=== PATIENT | male | born 1965 | race Caucasian/White ===

== ENCOUNTER 2016-11-15 05:23 | Inpatient (IN) | payer OTHER ==
[~2016-11-15] VITALS: Ht 172.7 cm; Wt 108.5 kg
[2016-11-15] VITALS (9 sets, daily range): BP systolic 97–164; BP diastolic 63–78
[~2016-11-15 05:23] MED LIST: ALLO300T PO; ALPR0.5T PO; AMLO10TA2 PO; ASPI-482 PO; ATOR40TA59 PO; CYCL10TA2 PO; GABA-586 PO; GEMF600T3 PO; HYDR50TA6 PO; INSU100I17 SQ; INSU300I SQ; LIRA0.6P SQ; LOSA100T6 PO; MELA5TAB PO; METF10002 PO; METO100T11 PO; METO100T5 PO; MULT1TAB52 PO; OMEG1CAP28 PO; OXYC-250 PO; PANT40TA5 PO; SENN8.6T6 PO
--- NOTE | 2016-11-15 05:40 | EKG ---
[facility] [address] [place] [address] Test Date: 2016-11-15 Test Time: 05:33:04 Pat Name: DA APONTE Department: Room: 260 1 Gender: M Memory Care Director: TAMMY : 1965 Requested By: ELMO SINGLETON Order Number: [id number] Reading MD: Measurements Intervals [place] Rate: 66 P: -17 HI: 210 QRS: -4 QRSD: 102 T: -3 QT: 390 QTc: 411 Interpretive Statements SINUS RHYTHM LEFTWARD AXIS RVH WITH REPOLARIZATION ABNORMALITY ABNORMAL ECG RI6.01 No previous ECG available for comparison
[2016-11-15] MEDS: MORPHINE SULFATE 2 MG/ML DISP.SYRIN. IV PRN ×3 (05:56→22:20)
[2016-11-15] MEDS ORDERED: ACETAMINOPHEN 325 MG TABLET. PO PRN (06:00)
[2016-11-15] MEDS ORDERED: IV NORMAL SALINE 1000ML BAG 1,000 ML IV SCH (06:00)
[2016-11-15] MEDS ORDERED: ONDANSETRON PF 4 MG/2 ML VIAL. IV PRN (06:00)
[2016-11-15] MEDS: HYDROCODONE/APAP 5/325MG TABLET. PO PRN ×2 (06:26→23:03)
[2016-11-15] MEDS ORDERED: MELA5TAB PO (07:14)
[2016-11-15] MEDS ORDERED: OXYC-250 PO (07:14)
[2016-11-15] MEDS ORDERED: INSU100I13 SQ (07:14)
[2016-11-15] MEDS ORDERED: METF10002 PO (07:14)
[2016-11-15 07:21] LABS: HEMATOCRIT 26.7 % (39.0-53.0); RED CELL DISTRIBUTION WIDTH 13.7 % (11.5-14.5); WHITE BLOOD COUNT 11.7 x10^3/uL (4.0-11.0)
[2016-11-15 07:27] LABS: INR 1.1 (0.8-1.1); PROTHROMBIN TIME PATIENT 13.6 SEC (11.7-14.0)
[2016-11-15 07:31] LABS: CALCIUM 8.3 mg/dL (8.5-10.1); GFR 12.3; MAGNESIUM 2.2 mg/dL (1.8-2.4); POTASSIUM 4.6 mmol/L (3.5-5.1)
--- NOTE | 2016-11-15 08:58 | PDOC2 ---
RITU BARAHONA SENIOR ANALYTICAL CHEMIST 11/15/16 0858: CARDIAC CONSULT DATE OF CONSULT Date of Consult DATE: 11/15/16 TIME: 08:48 REASON FOR CONSULT Reason for Consult: Chest pain REFERRING PHYSICIAN Referring Physician: Ramon SOURCE Source: Chart review, Patient HISTORY OF PRESENT ILLNESS HISTORY OF PRESENT ILLNESS This is a 51 yo male admitted for complains of chest pain. He was initially admitted to [facility] and then transferred to [facility] for further workup. Reports that in the last 2 weeks he has been having right shoulder tightness, sharp pain and also right jaw pain like his teeth was aching. He was then given flexeril. This continued to be intermittent. Last night when he was about to go to bed, he started having mid chest pressure which intensified to 10 then dissipated, lasted about 6 hours finally better after morphine. This was associated with SOA but denies any palpitatins, diaphoresis, nor n/v. His activity tolerance haved been decreased. Denies any peripheral edema but positive for PND and has been noted with apnea accdg to diagnosed with CHARISSA 6 yrs ago but refused to wear any CPAP. His BG has been uncontrolled at home running in the 200s, HTN as well running in the 170s SBP, somewhat noncompliant with his meals for his DM, positive for CKD 4-5 with noted GFR per spouse at 12. He is positive for CAD with PCI/stent on 01/2014. Based on his symptom history, hissymtpom this time is worse that when he had his LHC in 2013. He actually had a normal MPI 1 month prior to his LHC. Denies any falls, injury, PUD, VTE in the past. To add he has been compliant with his medications in which spouse made sure of it. 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) GI: Constipation, GERD Heme/Onc: Anemia NOS Hepatobiliary: No pertinent hx Psych: Anxiety, Panic Musculoskeletal: Osteoarthritis, Other (chronic pain) Rheumatologic: Gout Infectious disease: No pertinent hx ENT: Other (cataract) Renal/: Chronic renal insuff (CKD4-5) Endocrine: Diabetes (2), Hyperparathyroidism (secondary) Dermatology: No pertinent hx PAST SURGICAL HISTORY Past Surgical History: Appendectomy, Cataract Removal, Other (PCI/stent 01/2014 ; vasectomy; mastoidectomy) FAMILY HISTORY Family History: Coronary Artery Disease (father in his 40s and grandfather as well) SOCIAL HISTORY Smoke: No (10 pk yr quit 6 yrs ago) ALCOHOL: occassional Drugs: None Lives: with Family CURRENT MEDICATIONS CURRENT MEDICATIONS Current Medications Medications (Trade) Dose Ordered Sig/Floridalma Route PRN Reason Start Time Stop Time Status Last Admin Dose Admin Morphine Sulfate 2 mg PRN Q2HR PRN IV SEVERE PAIN 11/15/16 05:45 11/15/16 05:56 Acetaminophen/ Hydrocodone Bitart (Lortab 5/325) 1 tab PRN Q6HRS PRN PO MODERATE PAIN 11/15/16 05:45 11/15/16 06:26 ALLERGIES ALLERGIES: Coded Allergies: colchicine (Verified Allergy, Intermediate, 11/15/16) ROS Review of System 14 point ROS evaluated with pertinent positives noted per HPI PHYSICAL EXAM General: Alert, Oriented X3, Cooperative, No acute distress HEENT: Atraumatic, Mucous membr. moist/pink Lungs: Other (faint bibasilar crackles) Heart: Regular rate, Normal S1, Normal S2, Other (S4; MAI 4/6 systolic murmur and 3/6 apical pansystolic murmur. ) Abdomen: Soft, No tenderness, Other (protuberant abdomen) Extremities: No cyanosis, Other (Trace LE edema) Skin: No breakdown, No significant lesion Neuro: Normal speech, Sensation intact Psych/Mental Status: Mental status NL, Mood NL MUSCULOSKELETAL: Osteoarthritic changes both hands VITALS VITALS Vital Signs Date Time Temp Pulse Resp B/P Pulse Ox O2 Delivery O2 Flow Rate FiO2 11/15/16 07:44 98.0 64 16 97/63 92 Nasal Cannula 98.0 11/15/16 07:32 3.0 LABS Lab: Laboratory Tests Test 11/15/16 05:56 11/15/16 07:05 Glucose (Fingerstick) 408mg/dL (70-99) White Blood Count 11.7x10^3/uL (4.0-11.0) Red Blood Count 3.00x10^6/uL (4.30-5.70) Hemoglobin 9.0g/dL (13.0-17.5) Hematocrit 26.7% (39.0-53.0) Mean Corpuscular Volume 89fL (79-100) Mean Corpuscular Hemoglobin 30pg (25-35) Mean Corpuscular Hemoglobin Concent 34g/dL (31-37) Red Cell Distribution Width 13.7% (11.5-14.5) Platelet Count 246x10^3/uL (140-400) Prothrombin Time 13.6SEC (11.7-14.0) Prothromb Time International Ratio 1.1 (0.8-1.1) Sodium Level 136mmol/L (136-145) Potassium Level 4.6mmol/L (3.5-5.1) Chloride Level 99mmol/L (98-107) Carbon Dioxide Level 24mmol/L (21-32) Anion Gap 13 (6-14) Blood Urea Nitrogen 71mg/dL (8-26) Creatinine 5.0mg/dL (0.7-1.3) Estimated GFR (Cockcroft-Gault) 12.3 Glucose Level 379mg/dL (70-99) Calcium Level 8.3mg/dL (8.5-10.1) Magnesium Level 2.2mg/dL (1.8-2.4) Troponin I Quantitative < 0.017ng/mL (0.000-0.055) ASSESSMENT/PLAN ASSESSMENT/PLAN 1. Unstable angina: 2 troponins normal, will trend further. EKG noted with changes to ST on high lateral leads and noncontiguous to leads 2. ECASA. Start on heparin drip. Currently CP free and no SOA. AMARILIS score 5 with pretest probability of 65%. Recommend [facility]. Risks and benefits discussed and agreeable to proceed. Await nephrology eval before proceeding. Cr at 5 with background of CKD4-5. Likely dialysis. TTE today. 01/14/2014 showed an ejection fraction at 60 to 65%, mild diastolic dysfunction, and mild atrial enlargement. His nuclear stress test was done on 01/08/2014 that showed normal perfusion. 2. CAD: 01/2014 it showed EF 60%, left main was normal, left circumflex had 10% minimal disease, LAD had 50% mid segment blockage, RCA had a 70% stenosis that was angioplastied and stented. Last seen by [facility] cardiology on 01/2015 in which plavix was discontinued. Continue with secondary prevention. 3. HTN: low normal currently. Uncontrolled at home noting SBP 170s. Will hold antiHTN for now with low BP. 4. HLP: lipid panel, continue with statin 5. DM2: mostly in the 200s at home. Uncontrolled. Per PCP 6. LLUVIA on CKD4-5: GFR per pt 12s. Nephrology following. 7. Noncompliance with lifestyle modification 8. Hx of CVA in 2003: no residuals. 9. Hx of CHARISSA: continued symptoms. Diagnosed 6 yrs ago but could not tolerate CPAP. 10. Anemia of chronic disease: Hgb 9 11. Obesity Problems: JANUARY RICE MD 11/15/164: CARDIAC CONSULT ALLERGIES ALLERGIES: Coded Allergies: colchicine (Verified Allergy, Intermediate, 11/15/16) ASSESSMENT/PLAN ASSESSMENT/PLAN Patient seen and examined. Agree with above nurse practitioner note. 51-year-old male presenting with unstable angina. Patient also has severe renal sufficiency. After discussion of the risks and benefits of cardiac catheterization the patient ultimately wish to proceed understanding the risks for progression to dialysis. On examination he has a 3 out 6 systolic murmur. Cardiac catheterization performed today revealed stable coronary artery disease. There was difficulty entering the left ventricular cavity with a catheter and due to patient discomfort and hypoxia while on the catheterization table further manipulation was deferred in lieu of by echocardiogram which is suspicious for moderate aortic stenosis. We will consider a transesophageal echocardiography tomorrow based on patient condition. Will follow along closely. Problems: RITU BARAHONA APRN Nov 15, 2016 08:58 JANUARY RICE MD Nov 15, 2016 21:34
[2016-11-15] MEDS ORDERED: ASPIRIN ENTERIC COATED 325 MG TABLET.DR. PO ONE (09:45)
[2016-11-15] MEDS ORDERED: HEPARIN for IV BOLUS 10,000 UNIT/10 ML VIAL. IV PRN (09:45)
[2016-11-15] MEDS ORDERED: HEPARIN 25,000UTS/500ML PREMIX 500 ML IV PRN (09:45)
[2016-11-15] MEDS ORDERED: SULFUR HEXAFLUORIDE MICROSPHR 25 MG VIAL. IVP ONE ×2 (09:57→10:15)
[2016-11-15 10:05] LABS: CHOLESTEROL/HDL RATIO 4.4
[2016-11-15] MEDS ORDERED: DEXTROSE 50% 25 GM / 50ML DISP.SYRIN. IV PRN (10:15)
[2016-11-15] MEDS ORDERED: LIDOCAINE 1% Multi-Dose 20 ML VIAL. ONE (10:27)
[2016-11-15] MEDS ORDERED: HEPARIN for IV BOLUS 10,000 UNIT/10 ML VIAL. ONE (10:27)
[2016-11-15] MEDS ORDERED: VERAPAMIL 5 MG/2 ML VIAL. ONE (10:27)
[2016-11-15] MEDS ORDERED: NITROGLYCERIN 200 MCG/2 ML SYRINGE FOR CATH/VASC LAB. ONE (10:27)
[2016-11-15] MEDS ORDERED: MIDAZOLAM HCL 2 MG/2 ML VIAL. ONE (10:28)
[2016-11-15] MEDS ORDERED: FENTANYL PF 100 MCG/2 ML VIAL. ONE (10:28)
[2016-11-15] MEDS ORDERED: LIDOCAINE 2% 20 ML VIAL. ONE (10:29)
[2016-11-15] MEDS ORDERED: IODIXANOL 320 MG/ML 100 ML VIAL. ONE (10:29)
[2016-11-15] MEDS ORDERED: INSULIN REGULAR 100 UNIT/ML 10ML VIAL. IV ONE (10:30)
--- NOTE | 2016-11-15 10:36 | PDOC1 ---
History and Physical Date of Admission Date of Admission DATE: 11/15/16 TIME: 10:29 Identification/Chief Complaint Chief Complaint chest pain Source Source: Chart review, Patient History of Present Illness History of Present Illness 51 y.o heavy set male who came to [place] last night bec of CP, was all day yesterday, left sided, with SOA, Hx of HTN, uncontrolled (on high sode) , DM 2 on high doses insulin and CKD. PCP Bairon ruano, CReatinien at [place] was 5, trops were elevated hence pt trabsferred for cards and renal consults, Pt ahs been a diabetic and hypertensive for many yrs, usually BP on high side, but BP now actually on low side. On long list of meds, uincluding metformin 500 qD and losartan and HCTZ. Other BP meds are BB and norvasc. Pt did take levemir last night, but BS bow 400s, hgba1c was 7 2 weeks ago per his acct, [facility] has seen, started heparin gtt, planning on cardiac cath today. Renal has seen also planning on CVC dilaysis cath to be placed and plans of initiating HD. at bedside,. 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) GI: Constipation, GERD Heme/Onc: Anemia NOS Hepatobiliary: No pertinent hx Psych: Anxiety, Panic Musculoskeletal: Osteoarthritis, Other (chronic pain) Rheumatologic: Gout Infectious disease: No pertinent hx ENT: Other (cataract) Renal/: Chronic renal insuff (CKD4-5) Endocrine: Diabetes (2), Hyperparathyroidism (secondary) Dermatology: No pertinent hx Past Surgical History Past Surgical History: Appendectomy, Cataract Removal, Other (PCI/stent 01/2014 ; vasectomy; mastoidectomy) Family History Family History: Coronary Artery Disease (father in his 40s and grandfather as well) Social History Smoke: No (10 pk yr quit 6 yrs ago) ALCOHOL: none Drugs: None Current Medications Current Medications Current Medications Morphine Sulfate 2 mg PRN Q2HR PRN IV SEVERE PAIN Last administered on at 05:56; Start 11/15/16 at 05:45 Acetaminophen/ Hydrocodone Bitart (Lortab 5/325) 1 tab PRN Q6HRS PRN PO MODERATE PAIN Last administered on 11/15/16at 06:26; Start 11/15/16 at 05:45 Acetaminophen (Tylenol) 650 mg PRN Q6HRS PRN PO MILD PAIN / TEMP; Start at 06:00 Ondansetron HCl 4 mg 4 mg PRN Q6HRS PRN IV NAUSEA/VOMITING; Start 11/15/16 at 06:00 Sodium Chloride 1,000 ml @ 100 mls/hr Q10H IV Last administered on 11/15/16at 10:11; Start 11/15/16 at 06:00 Heparin Sodium/ Dextrose 500 ml @ 0 mls/hr CONT PRN IV SEE I/O RECORD Last administered on 11/15/16at 10:15; Start 11/15/16 at 09:45 Heparin Sodium (Porcine) 2,850 unit PRN Q6HRS PRN IV FOR UFH LEVEL LESS THAN 0.2; Start 11/15/16 at 09:45 Aspirin (Ecotrin) 325 mg 1X ONCE PO Last administered on 11/15/16at 10:11; Start 11/15/16 at 09:45; Stop 11/15/16 at 09:46; Status DC Aspirin (Ecotrin) 81 mg DAILYWBKFT PO ; Start 11/16/16 at 08:00 Sulfur Hexafluoride Microspheres (Lumason) 25 mg STK-MED ONCE IVP ; Start 11/15 at 09:57; Stop 11/15/16 at 09:58; Status DC Allopurinol (Zyloprim) 150 mg DAILY PO ; Start 11/16/16 at 09:00 Alprazolam (Xanax) 0.5 mg Q8HRS PRN PO ANXIETY / AGITATION; Start 11/15/16 at 10:15 Amlodipine Besylate (Norvasc) 10 mg DAILY PO ; Start 11/16/16 at 09:00; Stop 11/16/16 at 09:00; Status DC Aspirin (Ecotrin) 81 mg DAILYWBKFT PO ; Start 11/16/16 at 08:00; Status UNV Atorvastatin Calcium (Lipitor) 40 mg HS PO ; Start 11/15/16 at 21:00 Cyclobenzaprine HCl (Flexeril) 10 mg DAILY PO ; Start 11/16/16 at 09:00 Gabapentin (Neurontin) 300 mg DAILY PO ; Start 11/16/16 at 09:00 Gemfibrozil (Lopid) 300 mg BID PO ; Start 11/15/16 at 21:00 Insulin Aspart (Novolog) 1 units TIDAC SQ ; Start 11/15/16 at 11:30; Stop at 11:30; Status DC Metoprolol Succinate (Toprol Xl) 100 mg DAILY PO ; Start 11/16/16 at 09:00; Stop 11/16/16 at 09:00; Status DC Oxycodone/ Acetaminophen (Percocet 10/325) 1 tab TID PO ; Start 11/15/16 at 14: 00 Pantoprazole Sodium (Protonix) 40 mg DAILYAC PO ; Start 11/16/16 at 09:00 Sennosides (Senna) 8.6 mg DAILY PRN PO CONSTIPATION; Start 11/15/16 at 10:15 Insulin Detemir (Levemir) 50 units QHS SQ ; Start 11/15/16 at 21:00 Non-Formulary Medication 0.2 mg DAILY SQ ; Start 11/16/16 at 09:00; Status UNV Non-Formulary Medication 5 mg HS PO ; Start 11/15/16 at 21:00; Status UNV Multivitamins/ Calcium (Thera M Plus) 1 tab DAILY PO ; Start 11/16/16 at 09:00 Fish Oil (Fish Oil) 4,000 mg DAILY PO ; Start 11/16/16 at 09:00 Insulin Aspart (Novolog) 0-9 UNITS TIDWMEALS SQ ; Start 11/15/16 at 12:00 Dextrose 12.5 gm PRN Q15MIN PRN IV SEE COMMENTS; Start 11/15/16 at 10:15 Sulfur Hexafluoride Microspheres (Lumason) 25 mg 1X ONCE IVP Last administered on 11/15/16at 10:16; Start 11/15/16 at 10:15; Stop 11/15/16 at 10 :25; Status DC Nitroglycerin 200 mcg 200 mcg STK-MED ONCE .ROUTE ; Start 11/15/16 at 10:27; Stop 11/15/16 at 10:28; Status DC Heparin Sodium/ Sodium Chloride 1,000 ml @ As Directed STK-MED ONCE .ROUTE ; Start 11/15/16 at 10:27; Stop 11/15/16 at 10:28; Status DC Verapamil HCl (Verapamil) 5 mg STK-MED ONCE .ROUTE ; Start 11/15/16 at 10:27; Stop 11/15/16 at 10:28; Status DC Heparin Sodium (Porcine) 10,000 unit STK-MED ONCE .ROUTE ; Start 11/15/16 at 10 :27; Stop 11/15/16 at 10:28; Status DC Active Scripts Active Reported Metformin Hcl 1,000 Mg Tablet 1 Tab PO TID Melatonin 5 Mg Tablet 5 Mg PO HS Percocet 10-325 Mg Tablet (Oxycodone/Acetaminophen) 1 Each Tablet 1 Tab PO TID Lantus Solostar (Insulin Glargine,Hum.rec.anlog) 100 Unit/1 Ml Insuln.pen 50 Unit SQ QHS Xanax (Alprazolam) 0.5 Mg Tablet 0.5 Mg PO Q8HRS PRN Victoza 2-Can (Liraglutide) 0.6 Mg/0.1 Ml Pen.injctr 0.2 Mg SQ DAILY Senna Lax (Sennosides) 8.6 Mg Tablet 8.6 Mg PO DAILY PRN Pantoprazole Sodium 40 Mg Tablet.dr 40 Mg PO DAILY Novolog Flexpen (Insulin Aspart) 100 Unit/1 Ml Insuln.pen 1 Unit SQ TIDAC follow ordered sliding scale Multivitamins (Multivitamin) 1 Each Tablet 1 Each PO DAILY Toprol Xl (Metoprolol Succinate) 100 Mg Tab.er.24h 100 Mg PO DAILY Metoprolol Succinate ( Xl ) (Metoprolol Succinate) 100 Mg Tab.er.24h 100 Mg PO DAILY Losartan Potassium 100 Mg Tablet 100 Mg PO DAILY Hydrochlorothiazide Tablet (Hydrochlorothiazide) 50 Mg Tablet 25 Mg PO DAILY Gemfibrozil 600 Mg Tablet 300 Mg PO BID Gabapentin 300 Mg Capsule 300 Mg PO DAILY Fish Oil 1,200 Mg Softgel ([place]-3 Fatty Acids/Fish Oil) 1 Each Capsule 4 Each PO DAILY Cyclobenzaprine Hcl 10 Mg Tablet 10 Mg PO DAILY Atorvastatin Calcium 40 Mg Tablet 40 Mg PO HS Aspir 81 (Aspirin) 81 Mg Tablet.dr 81 Mg PO DAILY Amlodipine Besylate 10 Mg Tablet 10 Mg PO DAILY Allopurinol 300 Mg Tablet 150 Mg PO DAILY Allergies Allergies: Coded Allergies: colchicine (Verified Allergy, Intermediate, 12/28/16) nitroglycerin (Verified Allergy, Intermediate, 11/15/16) ROS Review of System soa, chest pain, weak Physical Exam General: Alert, Oriented X3, Cooperative, No acute distress HEENT: Atraumatic Lungs: Normal air movement, Other (dec BS) Heart: S1S2, RRR, no thrills Abdomen: Normal bowel sounds, Soft, No tenderness, No hepatosplenomegaly, No masses Male Genitals Exam: normal genitalia, normal prostate Extremities: No clubbing, No cyanosis, No edema, Normal pulses, No tenderness/ swelling Skin: No rashes, No breakdown, No significant lesion Neuro: Normal gait, Normal speech, Strength at 5/5 X4 ext, Normal tone, Sensation intact, Cranial nerves 3-12 NL, Reflexes 2+ Psych/Mental Status: Mental status NL, Mood NL Vitals Vitals Vital Signs Date Time Temp Pulse Resp B/P Pulse Ox O2 Delivery O2 Flow Rate FiO2 11/15/16 07:44 98.0 64 16 97/63 92 Nasal Cannula 98.0 11/15/16 07:32 3.0 Labs Labs Laboratory Tests Test 11/15/16 05:56 11/15/16 07:05 Glucose (Fingerstick) 408mg/dL (70-99) White Blood Count 11.7x10^3/uL (4.0-11.0) Red Blood Count 3.00x10^6/uL (4.30-5.70) Hemoglobin 9.0g/dL (13.0-17.5) Hematocrit 26.7% (39.0-53.0) Mean Corpuscular Volume 89fL (79-100) Mean Corpuscular Hemoglobin 30pg (25-35) Mean Corpuscular Hemoglobin Concent 34g/dL (31-37) Red Cell Distribution Width 13.7% (11.5-14.5) Platelet Count 246x10^3/uL (140-400) Prothrombin Time 13.6SEC (11.7-14.0) Prothromb Time International Ratio 1.1 (0.8-1.1) Sodium Level 136mmol/L (136-145) Potassium Level 4.6mmol/L (3.5-5.1) Chloride Level 99mmol/L (98-107) Carbon Dioxide Level 24mmol/L (21-32) Anion Gap 13 (6-14) Blood Urea Nitrogen 71mg/dL (8-26) Creatinine 5.0mg/dL (0.7-1.3) Estimated GFR (Cockcroft-Gault) 12.3 Glucose Level 379mg/dL (70-99) Calcium Level 8.3mg/dL (8.5-10.1) Magnesium Level 2.2mg/dL (1.8-2.4) Troponin I Quantitative < 0.017ng/mL (0.000-0.055) Triglycerides Level 185mg/dL (0-150) Cholesterol Level 190mg/dL (0-200) LDL Cholesterol, Calculated 110mg/dL (0-100) VLDL Cholesterol, Calculated 37mg/dL (0-40) HDL Cholesterol 43mg/dL (40-60) Cholesterol/HDL Ratio 4.4 Thyroid Stimulating Hormone (TSH) 1.184uIU/mL (0.358-3.74) Laboratory Tests Test 11/15/16 05:56 11/15/16 07:05 Glucose (Fingerstick) 408mg/dL (70-99) White Blood Count 11.7x10^3/uL (4.0-11.0) Red Blood Count 3.00x10^6/uL (4.30-5.70) Hemoglobin 9.0g/dL (13.0-17.5) Hematocrit 26.7% (39.0-53.0) Mean Corpuscular Volume 89fL (79-100) Mean Corpuscular Hemoglobin 30pg (25-35) Mean Corpuscular Hemoglobin Concent 34g/dL (31-37) Red Cell Distribution Width 13.7% (11.5-14.5) Platelet Count 246x10^3/uL (140-400) Prothrombin Time 13.6SEC (11.7-14.0) Prothromb Time International Ratio 1.1 (0.8-1.1) Sodium Level 136mmol/L (136-145) Potassium Level 4.6mmol/L (3.5-5.1) Chloride Level 99mmol/L (98-107) Carbon Dioxide Level 24mmol/L (21-32) Anion Gap 13 (6-14) Blood Urea Nitrogen 71mg/dL (8-26) Creatinine 5.0mg/dL (0.7-1.3) Estimated GFR (Cockcroft-Gault) 12.3 Glucose Level 379mg/dL (70-99) Calcium Level 8.3mg/dL (8.5-10.1) Magnesium Level 2.2mg/dL (1.8-2.4) Troponin I Quantitative < 0.017ng/mL (0.000-0.055) Triglycerides Level 185mg/dL (0-150) Cholesterol Level 190mg/dL (0-200) LDL Cholesterol, Calculated 110mg/dL (0-100) VLDL Cholesterol, Calculated 37mg/dL (0-40) HDL Cholesterol 43mg/dL (40-60) Cholesterol/HDL Ratio 4.4 Thyroid Stimulating Hormone (TSH) 1.184uIU/mL (0.358-3.74) VTE Prophylaxis Ordered VTE Prophylaxis Devices: Yes VTE Pharmacological Prophylaxi: Yes Assessment/Plan Assessment/Plan 1. CHest pain, possible nSTEMI, known CAD - high risk 2. DM 2 on high doses insulin, hgba1c 7 (2 weeks ago), uncontroled - BS now 400s , stress related - had cake 3. HTN, previously HYPERTENSIVE, now HYPOTENSIVE 4. OBesity 5. LLUVIA on CKD needing initiation of HD today PLAN: HOld metformin, losartan, HCTZ Rebal panel daily Hold BP meds -hypotensive Cardiac cath today TEmp HD cath today HD per renal Dw cards and renal Dw RN and at bedside ELMO SINGLETON MD Nov 15, 2016 10:36
--- NOTE | 2016-11-15 11:19 | PDOC ---
MODERATE SEDATION ASSESSMENT RISKS/ALTERNATIVES Risks/Alternatives Risks and alternatives of this type of sedation and procedure discussed with: RISK/ALTERNATIVES: Patient H & P ON CHART H & P H & P on chart and reviewed for co-morbid conditions and appropriate labs. H&P ON CHART: Yes STATUS PREG STATUS ASSESSED: N/A MEDS/ALLERGIES REVIEWED Meds/Allergies Reviewed Medications and Allergies including time and route of recently administered narcotics and sedatives. MEDS/ALLERGIES REVIEWED: Yes ASA RATING ASA RATING: II AIRWAY ASSESSMENT Airway Assessment Airway patency, oral function limitations, presence of caps, crowns, dentures, partials, and ability to extend neck assessed. AIRWAY ASSESSMENT: Yes MALLAMPATI SCORE MALLAMPATI SCORE: II PRE-SEDATION ASSESSMENT PRE-SEDATION ASSESSMENT: Yes JANUARY RICE MD Nov 15, 2016 11:19
[2016-11-15] MEDS ORDERED: VERAPAMIL 5 MG/2 ML VIAL. IART ONE (11:30)
[2016-11-15] MEDS ORDERED: FENTANYL PF 100 MCG/2 ML VIAL. IV ONE (11:30)
[2016-11-15] MEDS ORDERED: HEPARIN for IV BOLUS 10,000 UNIT/10 ML VIAL. IART ONE (11:30)
[2016-11-15] MEDS ORDERED: IODIXANOL 320 MG/ML 100 ML VIAL. IART ONE (11:30)
[2016-11-15] MEDS ORDERED: INSULIN ASPART 300 UNITS/3 ML INSULN.PEN SQ SCH (11:30)
[2016-11-15] MEDS ORDERED: NITROGLYCERIN 200 MCG/2 ML SYRINGE FOR CATH/VASC LAB. IART ONE (11:30)
[2016-11-15] MEDS ORDERED: MIDAZOLAM HCL 2 MG/2 ML VIAL. IV ONE (11:30)
[2016-11-15] MEDS ORDERED: LIDOCAINE 2% 20 ML VIAL. IJ ONE (11:30)
--- NOTE | 2016-11-15 11:33 | PDOC2 ---
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) Endocrine: Diabetes (2), Hyperparathyroidism (secondary) Dermatology: No pertinent hx Past Surgical History Past Surgical History: Appendectomy, Cataract Removal, Other (PCI/stent 01/2014 ; vasectomy; mastoidectomy) Family History Family History: Coronary Artery Disease (father in his 40s and grandfather as well) Social History No (10 pk yr quit 6 yrs ago) ALCOHOL: none Drugs: None Lives: with Family Current Medications Current Medications Current Medications Morphine Sulfate 2 mg PRN Q2HR PRN IV SEVERE PAIN Last administered on at 05:56; Start 11/15/16 at 05:45 Acetaminophen/ Hydrocodone Bitart (Lortab 5/325) 1 tab PRN Q6HRS PRN PO MODERATE PAIN Last administered on 11/15/16at 06:26; Start 11/15/16 at 05:45 Acetaminophen (Tylenol) 650 mg PRN Q6HRS PRN PO MILD PAIN / TEMP; Start at 06:00 Ondansetron HCl 4 mg 4 mg PRN Q6HRS PRN IV NAUSEA/VOMITING; Start 11/15/16 at 06:00 Sodium Chloride 1,000 ml @ 100 mls/hr Q10H IV Last administered on 11/15/16at 10:11; Start 11/15/16 at 06:00 Heparin Sodium/ Dextrose 500 ml @ 0 mls/hr CONT PRN IV SEE I/O RECORD Last administered on 11/15/16at 10:15; Start 11/15/16 at 09:45 Heparin Sodium (Porcine) 2,850 unit PRN Q6HRS PRN IV FOR UFH LEVEL LESS THAN 0.2; Start 11/15/16 at 09:45 Aspirin (Ecotrin) 325 mg 1X ONCE PO Last administered on 11/15/16at 10:11; Start 11/15/16 at 09:45; Stop 11/15/16 at 09:46; Status DC Aspirin (Ecotrin) 81 mg DAILYWBKFT PO ; Start 11/16/16 at 08:00; Stop at 08:00; Status DC Sulfur Hexafluoride Microspheres (Lumason) 25 mg STK-MED ONCE IVP ; Start 11/15 at 09:57; Stop 11/15/16 at 09:58; Status DC Allopurinol (Zyloprim) 150 mg DAILY PO ; Start 11/16/16 at 09:00 Alprazolam (Xanax) 0.5 mg Q8HRS PRN PO ANXIETY / AGITATION; Start 11/15/16 at 10:15 Amlodipine Besylate (Norvasc) 10 mg DAILY PO ; Start 11/16/16 at 09:00; Stop 11/16/16 at 09:00; Status DC Aspirin (Ecotrin) 81 mg DAILYWBKFT PO ; Start 11/16/16 at 08:00; Status UNV Atorvastatin Calcium (Lipitor) 40 mg HS PO ; Start 11/15/16 at 21:00 Cyclobenzaprine HCl (Flexeril) 10 mg DAILY PO ; Start 11/16/16 at 09:00 Gabapentin (Neurontin) 300 mg DAILY PO ; Start 11/16/16 at 09:00 Gemfibrozil (Lopid) 300 mg BID PO ; Start 11/15/16 at 21:00 Insulin Aspart (Novolog) 1 units TIDAC SQ ; Start 11/15/16 at 11:30; Stop at 11:30; Status DC Metoprolol Succinate (Toprol Xl) 100 mg DAILY PO ; Start 11/16/16 at 09:00; Stop 11/16/16 at 09:00; Status DC Oxycodone/ Acetaminophen (Percocet 10/325) 1 tab TID PO ; Start 11/15/16 at 14: 00 Pantoprazole Sodium (Protonix) 40 mg DAILYAC PO ; Start 11/16/16 at 09:00 Sennosides (Senna) 8.6 mg DAILY PRN PO CONSTIPATION; Start 11/15/16 at 10:15 Insulin Detemir (Levemir) 50 units QHS SQ ; Start 11/15/16 at 21:00 Non-Formulary Medication 0.2 mg DAILY SQ ; Start 11/16/16 at 09:00; Status UNV Non-Formulary Medication 5 mg HS PO ; Start 11/15/16 at 21:00; Status UNV Multivitamins/ Calcium (Thera M Plus) 1 tab DAILY PO ; Start 11/16/16 at 09:00 Fish Oil (Fish Oil) 4,000 mg DAILY PO ; Start 11/16/16 at 09:00 Insulin Aspart (Novolog) 0-9 UNITS TIDWMEALS SQ ; Start 11/15/16 at 12:00 Dextrose 12.5 gm PRN Q15MIN PRN IV SEE COMMENTS; Start 11/15/16 at 10:15 Sulfur Hexafluoride Microspheres (Lumason) 25 mg 1X ONCE IVP Last administered on 11/15/16at 10:16; Start 11/15/16 at 10:15; Stop 11/15/16 at 10 :25; Status DC Nitroglycerin 200 mcg 200 mcg STK-MED ONCE .ROUTE ; Start 11/15/16 at 10:27; Stop 11/15/16 at 10:28; Status DC Heparin Sodium/ Sodium Chloride 1,000 ml @ As Directed STK-MED ONCE .ROUTE ; Start 11/15/16 at 10:27; Stop 11/15/16 at 10:28; Status DC Verapamil HCl (Verapamil) 5 mg STK-MED ONCE .ROUTE ; Start 11/15/16 at 10:27; Stop 11/15/16 at 10:28; Status DC Heparin Sodium (Porcine) 10,000 unit STK-MED ONCE .ROUTE ; Start 11/15/16 at 10 :27; Stop 11/15/16 at 10:28; Status DC Lidocaine HCl 20 ml STK-MED ONCE .ROUTE ; Start 11/15/16 at 10:27; Stop at 10:28; Status DC Insulin Aspart (Novolog) 15 units TIDAC SQ ; Start 11/15/16 at 11:30 Insulin Human Regular (Novolin R Vial) 10 unit 1X ONCE IV Last administered on 11/15/16at 10:52; Start 11/15/16 at 10:30; Stop 11/15/16 at 10:31; Status DC Fentanyl Citrate (Fentanyl 2ml Vial) 100 mcg STK-MED ONCE .ROUTE ; Start at 10:28; Stop 11/15/16 at 10:29; Status DC Midazolam HCl (Versed) 2 mg STK-MED ONCE .ROUTE ; Start 11/15/16 at 10:28; Stop 11/15/16 at 10:29; Status DC Lidocaine HCl 20 ml STK-MED ONCE .ROUTE ; Start 11/15/16 at 10:29; Stop at 10:30; Status DC Iodixanol (Visipaque 320) 100 ml STK-MED ONCE .ROUTE ; Start 11/15/16 at 10:29 ; Stop 11/15/16 at 10:30; Status DC Aspirin (Ecotrin) 81 mg DAILYWBKFT PO ; Start 11/16/16 at 08:00 Nitroglycerin (Nitroglycerin) 200 mcg 1X ONCE IART ; Start 11/15/16 at 11:30; Stop 11/15/16 at 11:31 Verapamil HCl (Verapamil) 2.5 mg 1X ONCE IART ; Start 11/15/16 at 11:30; Stop 11/15/16 at 11:31 Heparin Sodium (Porcine) 2,500 unit 1X ONCE IART ; Start 11/15/16 at 11:30; Stop 11/15/16 at 11:31 Heparin Sodium/ Sodium Chloride 2,000 unit 1X ONCE IART ; Start 11/15/16 at 11 :30; Stop 11/15/16 at 11:31 Midazolam HCl (Versed) 2 mg 1X ONCE IV ; Start 11/15/16 at 11:30; Stop at 11:31 Fentanyl Citrate (Fentanyl 2ml Vial) 100 mcg 1X ONCE IV ; Start 11/15/16 at 11 :30; Stop 11/15/16 at 11:31 Iodixanol (Visipaque 320) 100 ml 1X ONCE IART ; Start 11/15/16 at 11:30; Stop 11/15/16 at 11:31 Lidocaine HCl 1 ml 1X ONCE IJ ; Start 11/15/16 at 11:30; Stop 11/15/16 at 11: 31 Active Scripts Active Reported Metformin Hcl 1,000 Mg Tablet 1 Tab PO TID Melatonin 5 Mg Tablet 5 Mg PO HS Percocet 10-325 Mg Tablet (Oxycodone/Acetaminophen) 1 Each Tablet 1 Tab PO TID Lantus Solostar (Insulin Glargine,Hum.rec.anlog) 100 Unit/1 Ml Insuln.pen 50 Unit SQ QHS Xanax (Alprazolam) 0.5 Mg Tablet 0.5 Mg PO Q8HRS PRN Victoza 2-Can (Liraglutide) 0.6 Mg/0.1 Ml Pen.injctr 0.2 Mg SQ DAILY Senna Lax (Sennosides) 8.6 Mg Tablet 8.6 Mg PO DAILY PRN Pantoprazole Sodium 40 Mg Tablet.dr 40 Mg PO DAILY Novolog Flexpen (Insulin Aspart) 100 Unit/1 Ml Insuln.pen 1 Unit SQ TIDAC follow ordered sliding scale Multivitamins (Multivitamin) 1 Each Tablet 1 Each PO DAILY Toprol Xl (Metoprolol Succinate) 100 Mg Tab.er.24h 100 Mg PO DAILY Metoprolol Succinate ( Xl ) (Metoprolol Succinate) 100 Mg Tab.er.24h 100 Mg PO DAILY Losartan Potassium 100 Mg Tablet 100 Mg PO DAILY Hydrochlorothiazide Tablet (Hydrochlorothiazide) 50 Mg Tablet 25 Mg PO DAILY Gemfibrozil 600 Mg Tablet 300 Mg PO BID Gabapentin 300 Mg Capsule 300 Mg PO DAILY Fish Oil 1,200 Mg Softgel (Sinclair-3 Fatty Acids/Fish Oil) 1 Each Capsule 4 Each PO DAILY Cyclobenzaprine Hcl 10 Mg Tablet 10 Mg PO DAILY Atorvastatin Calcium 40 Mg Tablet 40 Mg PO HS Aspir 81 (Aspirin) 81 Mg Tablet.dr 81 Mg PO DAILY Amlodipine Besylate 10 Mg Tablet 10 Mg PO DAILY Allopurinol 300 Mg Tablet 150 Mg PO DAILY Allergies Allergies: Coded Allergies: colchicine (Verified Allergy, Intermediate, 11/15/16) Vitals VITALS Vital Signs Date Time Temp Pulse Resp B/P Pulse Ox O2 Delivery O2 Flow Rate FiO2 11/15/16 07:44 98.0 64 16 97/63 92 Nasal Cannula 98.0 11/15/16 07:32 3.0 Labs Labs Laboratory Tests Test 11/15/16 05:56 11/15/16 07:05 Glucose (Fingerstick) 408mg/dL (70-99) White Blood Count 11.7x10^3/uL (4.0-11.0) Red Blood Count 3.00x10^6/uL (4.30-5.70) Hemoglobin 9.0g/dL (13.0-17.5) Hematocrit 26.7% (39.0-53.0) Mean Corpuscular Volume 89fL (79-100) Mean Corpuscular Hemoglobin 30pg (25-35) Mean Corpuscular Hemoglobin Concent 34g/dL (31-37) Red Cell Distribution Width 13.7% (11.5-14.5) Platelet Count 246x10^3/uL (140-400) Prothrombin Time 13.6SEC (11.7-14.0) Prothromb Time International Ratio 1.1 (0.8-1.1) Sodium Level 136mmol/L (136-145) Potassium Level 4.6mmol/L (3.5-5.1) Chloride Level 99mmol/L (98-107) Carbon Dioxide Level 24mmol/L (21-32) Anion Gap 13 (6-14) Blood Urea Nitrogen 71mg/dL (8-26) Creatinine 5.0mg/dL (0.7-1.3) Estimated GFR (Cockcroft-Gault) 12.3 Glucose Level 379mg/dL (70-99) Calcium Level 8.3mg/dL (8.5-10.1) Magnesium Level 2.2mg/dL (1.8-2.4) Troponin I Quantitative < 0.017ng/mL (0.000-0.055) Triglycerides Level 185mg/dL (0-150) Cholesterol Level 190mg/dL (0-200) LDL Cholesterol, Calculated 110mg/dL (0-100) VLDL Cholesterol, Calculated 37mg/dL (0-40) HDL Cholesterol 43mg/dL (40-60) Cholesterol/HDL Ratio 4.4 Thyroid Stimulating Hormone (TSH) 1.184uIU/mL (0.358-3.74) Laboratory Tests Test 11/15/16 05:56 11/15/16 07:05 Glucose (Fingerstick) 408mg/dL (70-99) White Blood Count 11.7x10^3/uL (4.0-11.0) Red Blood Count 3.00x10^6/uL (4.30-5.70) Hemoglobin 9.0g/dL (13.0-17.5) Hematocrit 26.7% (39.0-53.0) Mean Corpuscular Volume 89fL (79-100) Mean Corpuscular Hemoglobin 30pg (25-35) Mean Corpuscular Hemoglobin Concent 34g/dL (31-37) Red Cell Distribution Width 13.7% (11.5-14.5) Platelet Count 246x10^3/uL (140-400) Prothrombin Time 13.6SEC (11.7-14.0) Prothromb Time International Ratio 1.1 (0.8-1.1) Sodium Level 136mmol/L (136-145) Potassium Level 4.6mmol/L (3.5-5.1) Chloride Level 99mmol/L (98-107) Carbon Dioxide Level 24mmol/L (21-32) Anion Gap 13 (6-14) Blood Urea Nitrogen 71mg/dL (8-26) Creatinine 5.0mg/dL (0.7-1.3) Estimated GFR (Cockcroft-Gault) 12.3 Glucose Level 379mg/dL (70-99) Calcium Level 8.3mg/dL (8.5-10.1) Magnesium Level 2.2mg/dL (1.8-2.4) Troponin I Quantitative < 0.017ng/mL (0.000-0.055) Triglycerides Level 185mg/dL (0-150) Cholesterol Level 190mg/dL (0-200) LDL Cholesterol, Calculated 110mg/dL (0-100) VLDL Cholesterol, Calculated 37mg/dL (0-40) HDL Cholesterol 43mg/dL (40-60) Cholesterol/HDL Ratio 4.4 Thyroid Stimulating Hormone (TSH) 1.184uIU/mL (0.358-3.74) Assessment/Plan Assessment/Plan RENAL CONSULT/ LISA Dictated. # [id number] TYRON GONZALEZ MD Nov 15, 2016 11:33
[2016-11-15] MEDS ORDERED: HEPARIN for IV BOLUS 10,000 UNIT/10 ML VIAL. IV ONE (11:39)
[2016-11-15] MEDS ORDERED: ADENOSINE 90 MG/30 ML VIAL. IV ONE (11:59)
[2016-11-15] MEDS ORDERED: ADENOSINE 90 MG in IV NORMAL SALINE 50ML 90 ML IV ONE (12:04)
[2016-11-15] MEDS ORDERED: LIDOCAINE 1% / SOD BICARB 8.4% 20 ML VIAL. IJ ONE ×2 (12:43→13:15)
--- NOTE | 2016-11-15 13:24 | PDOC ---
Exam Central Supply Supervisor Central Supply Supervisor Nagi Cytogenetics Technologist Cytogenetics Technologist F Ndumbu Pre-Procedure Diagnosis Pre-Procedure Diagnosis LLUVIA on CKD---needs HD Post-Procedure Diagnosis Post-Procedure Diagnosis Same Procedure Performed Procedure Performed Sono/fluoro guided temp HDC insertion Type of Anesthesia Type of Anesthesia Local Estimated Blood Loss EBL: Minimal Drain/Tubes Drains/Tubes Rt IJ 14F 20cm Schon temp HDC Condition of Patient Condition of Patient Stable. No apparent complication. Disposition Disposition From IR to 260. OK to use temp HDC. F/u with Renal. Full report to follow. GERTRUDE ALLEN MD Nov 15, 2016 13:24
[2016-11-15] MEDS: OXYCODONE/APAP 10/325 TABLET. PO SCH ×2 (14:10→20:48)
[2016-11-15] MEDS: INSULIN ASPART 300 UNITS/3 ML INSULN.PEN SQ SCH ×4 (14:11→17:00)
[2016-11-15 14:51] LABS: BILIRUBIN,URINE NEGATIVE (NEG); GLUCOSE,URINE 100 mg/dL (NEG); NITRITE,URINE NEGATIVE (NEG); PH,URINE 5.5; UROBILINOGEN,URINE 0.2 mg/dL (0.2 mg/dL)
[2016-11-15 15:03] LABS: BACTERIA,URINE 0 /HPF (0-FEW); PROTEIN,URINE 50 mg/dL (NEG-TRACE); RBC,URINE 0 /HPF (0-2); SQUAMOUS EPITHELIAL CELL,UR FEW /LPF
[2016-11-15] MEDS ORDERED: IV NORMAL SALINE 1000ML BAG 1,000 ML IV PRN (15:55)
[2016-11-15] MEDS ORDERED: DIPHENHYDRAMINE 50 MG/ML VIAL IV PRN ×2 (16:00)
[2016-11-15] MEDS ORDERED: LABETALOL 20 MG/4 ML DISP.SYRIN. IVP PRN (16:00)
[2016-11-15] MEDS ORDERED: 0.9 % SODIUM CHLORIDE 10 ML DISP.SYRIN. IV PRN ×2 (16:00)
[2016-11-15] MEDS ORDERED: DIALYSIS PATIENT. MC PRN ×2 (16:00)
--- NOTE | 2016-11-15 16:05 | RAD ---
Ultrasound and fluoro guided right IJ temporary hemodialysis catheter Indication: 51-year-old male with acute kidney injury on chronic kidney disease. He needs hemodialysis. Temporary dialysis catheter insertion has been requested by renal. Fluoro time: 0.1 minutes Kerma-Area Product: 1 Gycm2 Anesthesia: Local only Sterility: All elements of maximal sterile barrier technique, including the use of a cap, mask, sterile gown, sterile gloves, large sterile sheet, appropriate hand hygiene, and 2% chlorhexidine for cutaneous antisepsis (or acceptable alternative antiseptic per current guidelines) were utilized. Procedure: Informed consent was obtained from the patient's . He was placed supine on the angiography table. Preliminary ultrasound examination of right neck revealed patency of right internal jugular vein, which was documented with a single hard copy ultrasound image. Right neck was then prepped and draped in the usual sterile fashion, utilizing all elements of maximal sterile barrier technique, as described above. Using aseptic technique, local anesthesia, direct ultrasound guidance, and the micropuncture system, successful percutaneous entry was achieved into right internal jugular vein. The right IJ venostomy tract was then dilated and a 14 Marshallese 20cm Schon temporary hemodialysis catheter was easily advanced centrally over an angiographic guidewire, and was positioned with its tip at the level of upper right atrium utilizing fluoroscopic guidance. This catheter was documented to flush and aspirate normally, was packed, and was secured at the right neck exit site utilizing suture and sterile dressing. Patient tolerated the procedure well without apparent complication. Satisfactory position of the dialysis catheter was confirmed with a single fluoroscopic spot image. Impression: Successful, uneventful ultrasound and fluoro guided placement of right IJ 14 Marshallese 20cm Schon temporary hemodialysis catheter, as described.
--- NOTE | 2016-11-15 20:10 | CARD ---
APPROVED REPORT EXAM: Two-dimensional and M-mode echocardiogram with Doppler and color Doppler. Other Information Quality : Average Rhythm : NSR INDICATION Cardiac Disease: CAD Chest Pain 2D DIMENSIONS Left Atrium(2D)3.5 (1.6-4.0cm)IVSd1.3 (0.7-1.1cm) Aortic Root(2D)3.5 (2.0-3.7cm)LVDd4.9 (3.9-5.9cm) LVOT Diameter2.1 (1.8-2.4cm)PWd1.3 (0.7-1.1cm) LVDs3.2 (2.5-4.0cm)FS (%) 33.4 % SV68.7 mlLVEF(%)61.9 (>50%) Aortic Valve AoV Peak Wally.264.8cm/sAoV VTI55.6cm AO Peak GR.28.0mmHgLVOT VTI 19.78cm AO Mean GR.16mmHgAVA (VTI)1.30cm2 Mitral Valve MV E Ncepmfga12.6cm/sMV E Peak Gr.3mmHg MV DECEL [id number] A Hvthpkzx47.9cm/s MV E Mean Gr.1mmHgMV [id number] E/A Ratio1.0MV A [id number] MVA (PHT)4.23cm2 TDI Lateral E' P. V7.50cm/sMedial E' P. V9.87cm/s E/Lateral E'9.3E/Medial E'7.1 Tricuspid Valve TR P. Xikhqmwo702dc/sRAP [id number] TR Peak Gr.84ywJaDNAD38zhMa LEFT VENTRICLE The left ventricle is normal size. There is borderline to mild concentric left ventricular hypertroph y. Left ventricle systolic function is normal. The Ejection Fraction is 60-65%. There is normal LV se gmental wall motion. The left ventricular diastolic function and filling is normal for age. RIGHT VENTRICLE The right ventricle is normal size. The right ventricular systolic function is normal. ATRIA The left atrium size is normal. The right atrium size is normal. The interatrial septum is intact wit h no evidence for an atrial septal defect or patent foramen ovale as noted on 2-D or Doppler imaging. AORTIC VALVE The aortic valve is calcified and displays decreased opening. Doppler and Color Flow revealed mild ao rtic regurgitation. Calculated aortic valve area is 1.3 cm2 with maximum pressure gradient of 28 mmHg and mean pressure gradient of 16 mmHg. MITRAL VALVE The mitral valve leaflets are thickened. There is no mitral valve stenosis. Doppler and Color Flow re vealed no mitral valve regurgitation noted. TRICUSPID VALVE The tricuspid valve is not well visualized. Doppler and Color Flow revealed trace tricuspid regurgita tion. The PA pressure was estimated at 19 mmHg. There is no tricuspid valve stenosis. PULMONIC VALVE The pulmonic valve is not well visualized. Doppler and Color Flow revealed no pulmonic valvular regur gitation. There is no pulmonic valvular stenosis. GREAT VESSELS The aortic root is normal in size. The IVC is normal in size and collapses >50% with inspiration. PERICARDIAL EFFUSION There is no evidence of significant pericardial effusion. Critical Notification Critical Value: No <Conclusion> Left ventricle systolic function is normal. The Ejection Fraction is 60-65%. There is normal LV segmental wall motion. The aortic valve is calcified and displays decreased opening. Calculated aortic valve area is 1.3 cm2 with maximum pressure gradient of 28 mmHg and mean pressure g radient of 16 mmHg. Suspect at least moderate aortic stenosis.
--- NOTE | 2016-11-15 20:40 | CONS ---
DATE OF CONSULTATION: REASON FOR CONSULTATION: Near end-stage renal disease. HISTORY OF PRESENT ILLNESS: The patient is a 51-year-old gentleman. Follows with Dr. Singer in our office, end-stage renal disease, type 2 diabetes and hypertensive nephrosclerosis, biopsy has shown severe arterial sclerosis. He was contemplating dialysis to start just after holidays, but however, developed acute chest pains with significantly worsened dyspnea in the last 24 hours that prompted hospitalization, diagnosed with unstable angina and coronary angiogram was planned. He denies any chest pains presently. Breathing is about baseline. He has good significant fatigue, malaise. Decreased appetite. In short, he has got several uremic symptoms. My consultation was requested in terms of probably reinitiating dialysis, especially in the face of coronary angiogram. PAST MEDICAL HISTORY: Significant for: 1. Hypertension. 2. Type 2 diabetes. 3. Coronary artery disease. 4. End-stage renal disease secondary to above. 5. Multiple diabetic complications including neuropathy, nephropathy, and vascular disease. 6. CVA. 7. Murray's palsy. 8. GERD. 9. Anemia of chronic disease. 10. Hyperuricemia/gout. 11. Hyperparathyroidism/renal failure. 12. Osteoarthritis. 13. Anxiety and panic disorder. PAST SURGICAL HISTORY: Significant for: 1. Appendectomy. 2. Cataract removal. 3. Coronary angiogram with a PCI stent in 2013. 4. Vasectomy. 5. Mastoidectomy. FAMILY HISTORY: Coronary artery disease. Father in his 40s, grandfather also. Nobody else on dialysis. SOCIAL HISTORY: About 10-15 pack year of smoking, quit about 6 years ago, currently no alcohol or recreational drugs. REVIEW OF SYSTEMS: As above, otherwise negative on a 10-point scale. PHYSICAL EXAMINATION: GENERAL: Middle-aged gentleman who appears in no distress. VITAL SIGNS: Stable. He is afebrile. HEENT: Pupils reactive. Tongue midline. NECK: Supple, no thyromegaly, masses, or bruits. LUNGS: Fairly good air entry, decreased bases. No rhonchi, rales or wheezing. CARDIOVASCULAR: Regular rate and rhythm, no gallop, no rub. ABDOMEN: , soft, nontender. No obvious masses, no clear ascites or fluid. EXTREMITIES: Trace to no edema. NEUROLOGIC: Nonfocal. LABORATORY DATA: Reviewed. IMPRESSION: 1. End-stage renal disease secondary to hypertensive diabetic nephrosclerosis, confirmed with biopsy. 2. Chest pain/angina, probably he needs cardiac workup including a coronary angiogram. 3. Type 2 diabetes and hypertension with chronic kidney disease and nephropathy. 4. Atherosclerotic heart disease, coronary artery disease and congestive heart failure, mainly diastolic. 5. Obesity with hypoventilation. PLAN: At this stage, we had a detailed discussion with the patient and the spouse, explained merits of dialysis, risks, benefits, need, startup versus continuing to just maximize medical treatment. It appears that with ongoing symptoms and being on heparin drip with unstable angina, dialysis appears to be somewhat inevitable. They are ready to proceed. Catheterization is being done emergently now. Would get a temporary dialysis catheter afterwards and start on dialysis. Monitor intake and output. Monitor labs. Discussed with patient. Thank you very much for the consultation. I appreciate the referral. We will follow with you. TYRON GONZALEZ MD DR: BUDDY/bruce JOB#: [id number] / [id number]
--- NOTE | 2016-11-15 20:44 | CARD ---
APPROVED REPORT Procedure(s) performed: Left Heart Catheterization iFR/FFR of the LAD HISTORY The patient is a 51 year-old male with a history of : previous PCI (The PCI date was ), hypertension. INDICATION The indication(s) include : unstable angina . CASE TECHNIQUE During this case, Fluoroscopy and Iso-osmolar contrast were used for imaging. PROCEDURE NARRATIVE The patient was brought electively to the cardiac catheterization lab. A timeout was performed confi rming the patient's name, date of , procedure, and site of procedure. All necessary personnel w ere wearing the appropriate protective equipment and radiation monitor devices. After explaining the risks and benefits of the procedure and alternatives, informed consent was obtained. (See nursing no shona for medications administered). The right wrist was sterilely prepped and draped in the usual fas hion. The right wrist was infiltrated with 1 mL of 2% lidocaine for subcutaneous anesthesia. A 6 Fr ench Terumo glide sheath was inserted into the right radial artery without difficulty. Right and lef t coronary angiography was performed using a 6Fr TIG 4.0 catheter. HEMODYNAMICS: 110/70 LEFT VENTRICULOGRAM: Not performed due to difficulty accessing the LV. Despite multiple attempts to cross the aortic valve with a pigtail catheter, this was unsuccessful. D ue to patient discomfort and mild hypoxia during the end of the case, further attempts were discontin ued in favor of performing an echocardiogram. CORONARY ANGIOGRAPHY: LM is a large caliber vessel with normal angiographic appearance. LAD is a large caliber vessel with a mid 50% stenosis after the 1st septal ship's cook. D1 is a moderate caliber vessel with normal angiographic apeparance. LCx is a small caliber non-dominant vessel. OM1 is a smallcaliber vessel with normal angiographic appearance. RCA is a large caliber dominant vessel with proximal to mid tortuosity and diffuse 30% stenosis and a patent mid stent. RPDA and RPL are moderate caliber vessels with normal angiographic appearance. INTERVENTIONAL TECHNIQUE: iFR and FFR of the LAD. Based upon the presenting symptoms, angiographic findings and prior history of known coronary disease and physiologic study was performed for further evaluation of the LAD stenosis. Heparin weight-base d bolus dosing was used to achieve and maintain an ACT greater than 200. Through a 6 Indonesian EBU 3.75 guide catheter a Art Sumo pressure wire was advanced to the distal LAD. An iFR was measured at 0.90. Due to this being in the indeterminate range, an FFR was performed with intravenous administra tion of adenonsine at 140mcg/kg/min. An FFR at 2 min was found to be 0.83. Therefore, further interve ntion was deferred in favor of medical therapy. All catheter exchanges and advancements were perform ed over a guidewire. At case completion the right radial sheath was removed and a Terumo radial band was applied with 14 ml of air. The patient tolerated the procedure well and there were no immediate complications. Conclusion 1. Suspect moderate aortic stenosis based on difficulty with catheter advancement into the LV and ech ocardiogram. 2. Two vessel CAD with patent RCA stent. 3. Negative FFR of the LAD at 0.83 (Less than 0.80 being significant) Recommendations Aggressive Medical Therapy
[2016-11-15] MEDS: ATORVASTATIN CALCIUM 40 MG TABLET. PO SCH (20:48)
[2016-11-15] MEDS: GEMFIBROZIL 600 MG TABLET. PO SCH (20:48)
[2016-11-15] MEDS: INSULIN DETEMIR 300 UNITS/3 ML INSULN.PEN. SQ SCH (20:49)
[2016-11-15] MEDS ORDERED: NON FORMULARY ITEM (Melatonin 5 MG) PO SCH (21:00)
[2016-11-15] MEDS ORDERED: FUROSEMIDE 40 MG/4 ML VIAL IVP ONE (22:45)
[2016-11-16 03:00] VITALS: BP 160/77
[2016-11-16 06:02] LABS: ALBUMIN 2.6 g/dL (3.4-5.0); CALCIUM 8.2 mg/dL (8.5-10.1); GFR 15.9; PHOSPHORUS 4.5 mg/dL (2.6-4.7); POTASSIUM 3.9 mmol/L (3.5-5.1)
[2016-11-16] MEDS: INSULIN ASPART 300 UNITS/3 ML INSULN.PEN SQ SCH ×6 (07:30→18:08)
[2016-11-16] MEDS ORDERED: ASPIRIN ENTERIC COATED 81 MG TABLET.DR. PO SCH ×2 (08:00)
[2016-11-16] MEDS: OXYCODONE/APAP 10/325 TABLET. PO SCH ×3 (09:00→20:34)
[2016-11-16] MEDS ORDERED: ALLOPURINOL 300 MG TABLET. PO SCH (09:00)
[2016-11-16] MEDS: MULTIVITAMIN with MINERAL TABLET. PO SCH (09:00)
[2016-11-16] MEDS: OMEGA-3 FATTY ACIDS/FISH OIL 1,000 MG CAPSULE. PO SCH (09:00)
[2016-11-16] MEDS: GEMFIBROZIL 600 MG TABLET. PO SCH ×2 (09:00→20:34)
[2016-11-16] MEDS ORDERED: AMLODIPINE BESYLATE 10 MG TABLET PO SCH (09:00)
[2016-11-16] MEDS ORDERED: METOPROLOL SUCC 24HR ER 100 MG TAB.ER.24H. PO SCH (09:00)
[2016-11-16] MEDS: CYCLOBENZAPRINE 10 MG TABLET. PO SCH (09:00)
[2016-11-16] MEDS: LIRAGLUTIDE SQ SCH (09:00)
[2016-11-16] MEDS: PANTOPRAZOLE 40 MG TABLET. PO SCH (09:00)
[2016-11-16] MEDS: GABAPENTIN 300 MG CAPSULE. PO SCH (09:00)
[2016-11-16] MEDS ORDERED: 0.9 % SODIUM CHLORIDE 10 ML DISP.SYRIN. IV PRN (09:30)
[2016-11-16] MEDS ORDERED: LIDOCAINE 2% VISCOUS 15 ML SOLUTION. MM ONE (09:30)
[2016-11-16] MEDS ORDERED: BENZOCAINE ONE 20% MUCOSAL SPRAY. MM (09:30)
[2016-11-16] MEDS ORDERED: LIDOCAINE 2% TOPICAL JELLY 5GM TUBE. TP ONE (09:30)
[2016-11-16 10:22] LABS: HEP B SURFACE ABDY Non Reactive (.)
[2016-11-16 10:23] VITALS: BP 158/76
[2016-11-16 11:44] VITALS: BP 160/71
--- NOTE | 2016-11-16 11:44 | PDOC ---
PROGRESS NOTES Chief Complaint Chief Complaint 1. CAD, no PCI needed - s/p cath R wrist 11/15 2. ESRD - NEW HD 2. DM 2 on high doses insulin, hgba1c 7 (2 weeks ago), uncontroled - BS now 400s , stress related - had cake 3. HTN, previously HYPERTENSIVE, now HYPOTENSIVE History of Present Illness History of Present Illness HAd 2 sessions HD already, no issues CAth results shows some fixed blockage, no stents needed, MEd cial mx Sw conuslted for outpt HD Leonel get WALLACE later For insertion of CVC cath (permanent cath) PLAn: WALLACE later PErma cath SW Outpt HD Possibly home tabby once HD outpt cath set up and if cleared by cards Await WALLACE Rounded with RN at bedside Vitals Vitals Vital Signs Date Time Temp Pulse Resp B/P Pulse Ox O2 Delivery O2 Flow Rate FiO2 11/16/16 10:23 98.2 80 16 158/76 92 Simple Mask 98.2 11/16/16 03:00 5.5 Physical Exam General: Alert, Oriented X3, Cooperative, No acute distress Heart: Regular rate, Normal S1, Normal S2, Other (S4; MAI 4/6 systolic murmur and 3/6 apical pansystolic murmur. ) Abdomen: Normal bowel sounds, Soft, No tenderness, No hepatosplenomegaly, No masses Extremities: No clubbing, No cyanosis, No edema, Normal pulses, No tenderness/ swelling Skin: No rashes, No breakdown, No significant lesion Labs LABS Laboratory Tests Test 11/15/16 12:50 11/15/16 14:30 11/15/16 16:15 11/15/16 18:13 Glucose (Fingerstick) 221mg/dL (70-99) 112mg/dL (70-99) Urine Collection Type Unknown Urine Color Yellow Urine Clarity Clear Urine pH 5.5 Urine Specific [place] 1.020 Urine Protein 50mg/dL (NEG-TRACE) Urine Glucose (UA) 100mg/dL (NEG) Urine Ketones (Stick) Negativemg/dL (NEG) Urine Blood Trace (NEG) Urine Nitrite Negative (NEG) Urine Bilirubin Negative (NEG) Urine Urobilinogen Dipstick 0.2mg/dL (0.2 mg/dL) Urine Leukocyte Esterase Negative (NEG) Urine RBC 0/HPF (0-2) Urine WBC 1-4/HPF (0-4) Urine Squamous Epithelial Cells Few/LPF Urine Bacteria 0/HPF (0-FEW) Urine Granular Casts Few/HPF Troponin I Quantitative < 0.017ng/mL (0.000-0.055) Hepatitis B Surface Antigen Negative (Negative) Hepatitis B Surface Antibody Non reactive (.) Test 11/15/16 20:14 11/16/16 04:30 Glucose (Fingerstick) 165mg/dL (70-99) Sodium Level 136mmol/L (136-145) Potassium Level 3.9mmol/L (3.5-5.1) Chloride Level 101mmol/L (98-107) Carbon Dioxide Level 26mmol/L (21-32) Anion Gap 9 (6-14) Blood Urea Nitrogen 52mg/dL (8-26) Creatinine 4.0mg/dL (0.7-1.3) Estimated GFR (Cockcroft-Gault) 15.9 Glucose Level 187mg/dL (70-99) Calcium Level 8.2mg/dL (8.5-10.1) Phosphorus Level 4.5mg/dL (2.6-4.7) Albumin 2.6g/dL (3.4-5.0) Comment Review of Relevant I have reviewed the following items kaylie (where applicable) has been applied. Labs Laboratory Tests Test 11/15/16 05:56 11/15/16 07:05 11/15/16 07:47 11/15/16 12:50 Glucose (Fingerstick) 408mg/dL (70-99) 356mg/dL (70-99) 221mg/dL (70-99) White Blood Count 11.7x10^3/uL (4.0-11.0) Red Blood Count 3.00x10^6/uL (4.30-5.70) Hemoglobin 9.0g/dL (13.0-17.5) Hematocrit 26.7% (39.0-53.0) Mean Corpuscular Volume 89fL (79-100) Mean Corpuscular Hemoglobin 30pg (25-35) Mean Corpuscular Hemoglobin Concent 34g/dL (31-37) Red Cell Distribution Width 13.7% (11.5-14.5) Platelet Count 246x10^3/uL (140-400) Prothrombin Time 13.6SEC (11.7-14.0) Prothromb Time International Ratio 1.1 (0.8-1.1) Sodium Level 136mmol/L (136-145) Potassium Level 4.6mmol/L (3.5-5.1) Chloride Level 99mmol/L (98-107) Carbon Dioxide Level 24mmol/L (21-32) Anion Gap 13 (6-14) Blood Urea Nitrogen 71mg/dL (8-26) Creatinine 5.0mg/dL (0.7-1.3) Estimated GFR (Cockcroft-Gault) 12.3 Glucose Level 379mg/dL (70-99) Hemoglobin A1c 9.2% (4.8-5.6) Calcium Level 8.3mg/dL (8.5-10.1) Magnesium Level 2.2mg/dL (1.8-2.4) Troponin I Quantitative < 0.017ng/mL (0.000-0.055) Triglycerides Level 185mg/dL (0-150) Cholesterol Level 190mg/dL (0-200) LDL Cholesterol, Calculated 110mg/dL (0-100) VLDL Cholesterol, Calculated 37mg/dL (0-40) HDL Cholesterol 43mg/dL (40-60) Cholesterol/HDL Ratio 4.4 Thyroid Stimulating Hormone (TSH) 1.184uIU/mL (0.358-3.74) Test 11/15/16 14:30 11/15/16 16:15 11/15/16 18:13 11/15/16 20:14 Urine Collection Type Unknown Urine Color Yellow Urine Clarity Clear Urine pH 5.5 Urine Specific [place] 1.020 Urine Protein 50mg/dL (NEG-TRACE) Urine Glucose (UA) 100mg/dL (NEG) Urine Ketones (Stick) Negativemg/dL (NEG) Urine Blood Trace (NEG) Urine Nitrite Negative (NEG) Urine Bilirubin Negative (NEG) Urine Urobilinogen Dipstick 0.2mg/dL (0.2 mg/dL) Urine Leukocyte Esterase Negative (NEG) Urine RBC 0/HPF (0-2) Urine WBC 1-4/HPF (0-4) Urine Squamous Epithelial Cells Few/LPF Urine Bacteria 0/HPF (0-FEW) Urine Granular Casts Few/HPF Troponin I Quantitative < 0.017ng/mL (0.000-0.055) Hepatitis B Surface Antigen Negative (Negative) Hepatitis B Surface Antibody Non reactive (.) Glucose (Fingerstick) 112mg/dL (70-99) 165mg/dL (70-99) Test 11/16/16 04:30 Sodium Level 136mmol/L (136-145) Potassium Level 3.9mmol/L (3.5-5.1) Chloride Level 101mmol/L (98-107) Carbon Dioxide Level 26mmol/L (21-32) Anion Gap 9 (6-14) Blood Urea Nitrogen 52mg/dL (8-26) Creatinine 4.0mg/dL (0.7-1.3) Estimated GFR (Cockcroft-Gault) 15.9 Glucose Level 187mg/dL (70-99) Calcium Level 8.2mg/dL (8.5-10.1) Phosphorus Level 4.5mg/dL (2.6-4.7) Albumin 2.6g/dL (3.4-5.0) Laboratory Tests Test 11/15/16 12:50 11/15/16 14:30 11/15/16 16:15 11/15/16 18:13 Glucose (Fingerstick) 221mg/dL (70-99) 112mg/dL (70-99) Urine Collection Type Unknown Urine Color Yellow Urine Clarity Clear Urine pH 5.5 Urine Specific [place] 1.020 Urine Protein 50mg/dL (NEG-TRACE) Urine Glucose (UA) 100mg/dL (NEG) Urine Ketones (Stick) Negativemg/dL (NEG) Urine Blood Trace (NEG) Urine Nitrite Negative (NEG) Urine Bilirubin Negative (NEG) Urine Urobilinogen Dipstick 0.2mg/dL (0.2 mg/dL) Urine Leukocyte Esterase Negative (NEG) Urine RBC 0/HPF (0-2) Urine WBC 1-4/HPF (0-4) Urine Squamous Epithelial Cells Few/LPF Urine Bacteria 0/HPF (0-FEW) Urine Granular Casts Few/HPF Troponin I Quantitative < 0.017ng/mL (0.000-0.055) Hepatitis B Surface Antigen Negative (Negative) Hepatitis B Surface Antibody Non reactive (.) Test 11/15/16 20:14 11/16/16 04:30 Glucose (Fingerstick) 165mg/dL (70-99) Sodium Level 136mmol/L (136-145) Potassium Level 3.9mmol/L (3.5-5.1) Chloride Level 101mmol/L (98-107) Carbon Dioxide Level 26mmol/L (21-32) Anion Gap 9 (6-14) Blood Urea Nitrogen 52mg/dL (8-26) Creatinine 4.0mg/dL (0.7-1.3) Estimated GFR (Cockcroft-Gault) 15.9 Glucose Level 187mg/dL (70-99) Calcium Level 8.2mg/dL (8.5-10.1) Phosphorus Level 4.5mg/dL (2.6-4.7) Albumin 2.6g/dL (3.4-5.0) Medications Current Medications Morphine Sulfate 2 mg PRN Q2HR PRN IV SEVERE PAIN Last administered on at 22:20; Start 11/15/16 at 05:45 Acetaminophen/ Hydrocodone Bitart (Lortab 5/325) 1 tab PRN Q6HRS PRN PO MODERATE PAIN Last administered on 11/15/16at 23:03; Start 11/15/16 at 05:45 Acetaminophen (Tylenol) 650 mg PRN Q6HRS PRN PO MILD PAIN / TEMP; Start at 06:00 Ondansetron HCl 4 mg 4 mg PRN Q6HRS PRN IV NAUSEA/VOMITING; Start 11/15/16 at 06:00 Sodium Chloride 1,000 ml @ 100 mls/hr Q10H IV Last administered on 11/15/16at 10:11; Start 11/15/16 at 06:00; Stop 11/15/16 at 22:02; Status DC Heparin Sodium/ Dextrose 500 ml @ 0 mls/hr CONT PRN IV SEE I/O RECORD Last administered on 11/15/16at 10:15; Start 11/15/16 at 09:45; Stop 11/15/16 at 15 :32; Status DC Heparin Sodium (Porcine) 2,850 unit PRN Q6HRS PRN IV FOR UFH LEVEL LESS THAN 0.2; Start 11/15/16 at 09:45; Stop 11/15/16 at 15:32; Status DC Aspirin (Ecotrin) 325 mg 1X ONCE PO Last administered on 11/15/16at 10:11; Start 11/15/16 at 09:45; Stop 11/15/16 at 09:46; Status DC Aspirin (Ecotrin) 81 mg DAILYWBKFT PO ; Start 11/16/16 at 08:00; Stop at 08:00; Status DC Sulfur Hexafluoride Microspheres (Lumason) 25 mg STK-MED ONCE IVP ; Start 11/15 at 09:57; Stop 11/15/16 at 09:58; Status DC Allopurinol (Zyloprim) 150 mg DAILY PO ; Start 11/16/16 at 09:00 Alprazolam (Xanax) 0.5 mg Q8HRS PRN PO ANXIETY / AGITATION; Start 11/15/16 at 10:15 Amlodipine Besylate (Norvasc) 10 mg DAILY PO ; Start 11/16/16 at 09:00; Stop 11/16/16 at 09:00; Status DC Aspirin (Ecotrin) 81 mg DAILYWBKFT PO ; Start 11/16/16 at 08:00; Status UNV Atorvastatin Calcium (Lipitor) 40 mg HS PO Last administered on 11/15/16at 20: 48; Start 11/15/16 at 21:00 Cyclobenzaprine HCl (Flexeril) 10 mg DAILY PO ; Start 11/16/16 at 09:00 Gabapentin (Neurontin) 300 mg DAILY PO ; Start 11/16/16 at 09:00 Gemfibrozil (Lopid) 300 mg BID PO Last administered on 11/15/16at 20:48; Start 11/15/16 at 21:00 Insulin Aspart (Novolog) 1 units TIDAC SQ ; Start 11/15/16 at 11:30; Stop at 11:30; Status DC Metoprolol Succinate (Toprol Xl) 100 mg DAILY PO ; Start 11/16/16 at 09:00; Stop 11/16/16 at 09:00; Status DC Oxycodone/ Acetaminophen (Percocet 10/325) 1 tab TID PO Last administered on at 20:48; Start 11/15/16 at 14:00 Pantoprazole Sodium (Protonix) 40 mg DAILYAC PO ; Start 11/16/16 at 09:00 Sennosides (Senna) 8.6 mg DAILY PRN PO CONSTIPATION; Start 11/15/16 at 10:15 Insulin Detemir (Levemir) 50 units QHS SQ Last administered on 11/15/16at 20:49 ; Start 11/15/16 at 21:00 Non-Formulary Medication 0.2 mg DAILY SQ ; Start 11/16/16 at 09:00; Status UNV Non-Formulary Medication 5 mg HS PO ; Start 11/15/16 at 21:00; Status UNV Multivitamins/ Calcium (Thera M Plus) 1 tab DAILY PO ; Start 11/16/16 at 09:00 Fish Oil (Fish Oil) 4,000 mg DAILY PO ; Start 11/16/16 at 09:00 Insulin Aspart (Novolog) 0-9 UNITS TIDWMEALS SQ Last administered on at 14:12; Start 11/15/16 at 12:00 Dextrose 12.5 gm PRN Q15MIN PRN IV SEE COMMENTS; Start 11/15/16 at 10:15 Sulfur Hexafluoride Microspheres (Lumason) 25 mg 1X ONCE IVP Last administered on 11/15/16at 10:16; Start 11/15/16 at 10:15; Stop 11/15/16 at 10 :25; Status DC Nitroglycerin 200 mcg 200 mcg STK-MED ONCE .ROUTE ; Start 11/15/16 at 10:27; Stop 11/15/16 at 10:28; Status DC Heparin Sodium/ Sodium Chloride 1,000 ml @ As Directed STK-MED ONCE .ROUTE ; Start 11/15/16 at 10:27; Stop 11/15/16 at 10:28; Status DC Verapamil HCl (Verapamil) 5 mg STK-MED ONCE .ROUTE ; Start 11/15/16 at 10:27; Stop 11/15/16 at 10:28; Status DC Heparin Sodium (Porcine) 10,000 unit STK-MED ONCE .ROUTE ; Start 11/15/16 at 10 :27; Stop 11/15/16 at 10:28; Status DC Lidocaine HCl 20 ml STK-MED ONCE .ROUTE ; Start 11/15/16 at 10:27; Stop at 10:28; Status DC Insulin Aspart (Novolog) 15 units TIDAC SQ Last administered on 11/15/16at 14: 11; Start 11/15/16 at 11:30 Insulin Human Regular (Novolin R Vial) 10 unit 1X ONCE IV Last administered on 11/15/16at 10:52; Start 11/15/16 at 10:30; Stop 11/15/16 at 10:31; Status DC Fentanyl Citrate (Fentanyl 2ml Vial) 100 mcg STK-MED ONCE .ROUTE ; Start at 10:28; Stop 11/15/16 at 10:29; Status DC Midazolam HCl (Versed) 2 mg STK-MED ONCE .ROUTE ; Start 11/15/16 at 10:28; Stop 11/15/16 at 10:29; Status DC Lidocaine HCl 20 ml STK-MED ONCE .ROUTE ; Start 11/15/16 at 10:29; Stop at 10:30; Status DC Iodixanol (Visipaque 320) 100 ml STK-MED ONCE .ROUTE ; Start 11/15/16 at 10:29 ; Stop 11/15/16 at 10:30; Status DC Aspirin (Ecotrin) 81 mg DAILYWBKFT PO ; Start 11/16/16 at 08:00 Nitroglycerin (Nitroglycerin) 200 mcg 1X ONCE IART Last administered on at 12:26; Start 11/15/16 at 11:30; Stop 11/15/16 at 11:31; Status DC Verapamil HCl (Verapamil) 2.5 mg 1X ONCE IART Last administered on 11/15/16at 12:25; Start 11/15/16 at 11:30; Stop 11/15/16 at 11:31; Status DC Heparin Sodium (Porcine) 2,500 unit 1X ONCE IART Last administered on at 12:28; Start 11/15/16 at 11:30; Stop 11/15/16 at 11:31; Status DC Heparin Sodium/ Sodium Chloride 2,000 unit 1X ONCE IART Last administered on 11/15/16at 12:20; Start 11/15/16 at 11:30; Stop 11/15/16 at 11:31; Status DC Midazolam HCl (Versed) 2 mg 1X ONCE IV Last administered on 11/15/16at 12:22; Start 11/15/16 at 11:30; Stop 11/15/16 at 11:31; Status DC Fentanyl Citrate (Fentanyl 2ml Vial) 100 mcg 1X ONCE IV Last administered on 11/15/16at 12:22; Start 11/15/16 at 11:30; Stop 11/15/16 at 11:31; Status DC Iodixanol (Visipaque 320) 100 ml 1X ONCE IART Last administered on 11/15/16at 12:20; Start 11/15/16 at 11:30; Stop 11/15/16 at 11:31; Status DC Lidocaine HCl 1 ml 1X ONCE IJ Last administered on 11/15/16at 12:19; Start at 11:30; Stop 11/15/16 at 11:31; Status DC Adenosine (Adenoscan) 90 mg STK-MED ONCE IV ; Start 11/15/16 at 11:59; Stop at 12:00; Status DC Heparin Sodium (Porcine) 4000 unit 4,000 unit 1X ONCE IV Last administered on 11/15/16at 12:30; Start 11/15/16 at 11:39; Stop 11/15/16 at 12:13; Status DC Adenosine/Sodium Chloride (Adenoscan/Iv Sodium Chloride 0.9% 50ml) 120 ml @ 0 mls/hr 1X ONCE IV Last administered on 11/15/16at 12:21; Start 11/15/16 at 12 :04; Stop 11/15/16 at 12:13; Status DC Lidocaine/Sodium Bicarbonate (Buffered Lidocaine 1%) 20 ml STK-MED ONCE IJ ; Start 11/15/16 at 12:43; Stop 11/15/16 at 12:44; Status DC Heparin Sodium/ Sodium Chloride 1,000 unit 1X ONCE IART Last administered on 11/15/16at 13:21; Start 11/15/16 at 13:15; Stop 11/15/16 at 13:16; Status DC Lidocaine/Sodium Bicarbonate (Buffered Lidocaine 1%) 20 ml 1X ONCE IJ Last administered on 11/15/16at 13:20; Start 11/15/16 at 13:15; Stop 11/15/16 at 13 :16; Status DC Heparin Sodium (Porcine) 2600 unit 2,600 unit 1X ONCE INT CAT Last administered on 11/15/16at 13:21; Start 11/15/16 at 13:15; Stop 11/15/16 at 13 :16; Status DC Sodium Chloride (Iv Sodium Chloride 0.9% 1000ml Bag) 1,000 ml @ 1,000 mls/hr Q1H PRN IV hypotension; Start 11/15/16 at 15:55; Stop 11/15/16 at 21:54; Status DC Diphenhydramine HCl (Benadryl) 25 mg 1X PRN PRN IV ITCHING; Start 11/15/16 at 16:00; Stop 11/16/16 at 15:59 Diphenhydramine HCl (Benadryl) 25 mg 1X PRN PRN IV ITCHING; Start 11/15/16 at 16:00; Stop 11/16/16 at 15:59 Sodium Chloride (Normal Saline Flush) 10 ml 1X PRN PRN IV AP catheter pack; Start 11/15/16 at 16:00; Stop 11/16/16 at 15:59 Sodium Chloride (Normal Saline Flush) 10 ml 1X PRN PRN IV HELIARC WELDER catheter pack; Start 11/15/16 at 16:00; Stop 11/16/16 at 15:59 Labetalol HCl (Normodyne) 10 mg PRN Q1HR PRN IVP SBP > 180; Start 11/15/16 at 16:00; Stop 11/16/16 at 15:59 Info (PHARMACY MONITORING -- do not chart) 1 each PRN DAILY PRN MC SEE COMMENTS ; Start 11/15/16 at 16:00 Info (PHARMACY MONITORING -- do not chart) 1 each PRN DAILY PRN MC SEE COMMENTS ; Start 11/15/16 at 16:00; Status UNV Furosemide (Lasix) 40 mg 1X ONCE IVP Last administered on 11/15/16at 22:52; Start 11/15/16 at 22:45; Stop 11/15/16 at 22:46; Status DC Sodium Chloride (Normal Saline Flush) 10 ml QSHIFT PRN IV AFTER MEDS AND BLOOD DRAWS; Start 11/16/16 at 09:30 Lidocaine HCl (Xylocaine 2% Topical 5gm Tube) 1 martha 1X ONCE TP ; Start at 09:30; Stop 11/16/16 at 09:34; Status DC Lidocaine HCl (Viscous Lidocaine) 15 ml 1X ONCE MM ; Start 11/16/16 at 09:30; Stop 11/16/16 at 09:34; Status DC Benzocaine (Hurricaine One) 3 spray 1X ONCE MM ; Start 11/16/16 at 09:30; Stop 11/16/16 at 09:34; Status DC Active Scripts Active Reported Metformin Hcl 1,000 Mg Tablet 1 Tab PO TID Melatonin 5 Mg Tablet 5 Mg PO HS Percocet 10-325 Mg Tablet (Oxycodone/Acetaminophen) 1 Each Tablet 1 Tab PO TID Lantus Solostar (Insulin Glargine,Hum.rec.anlog) 100 Unit/1 Ml Insuln.pen 50 Unit SQ QHS Xanax (Alprazolam) 0.5 Mg Tablet 0.5 Mg PO Q8HRS PRN Victoza 2-Can (Liraglutide) 0.6 Mg/0.1 Ml Pen.injctr 0.2 Mg SQ DAILY Senna Lax (Sennosides) 8.6 Mg Tablet 8.6 Mg PO DAILY PRN Pantoprazole Sodium 40 Mg Tablet.dr 40 Mg PO DAILY Novolog Flexpen (Insulin Aspart) 100 Unit/1 Ml Insuln.pen 1 Unit SQ TIDAC follow ordered sliding scale Multivitamins (Multivitamin) 1 Each Tablet 1 Each PO DAILY Toprol Xl (Metoprolol Succinate) 100 Mg Tab.er.24h 100 Mg PO DAILY Metoprolol Succinate ( Xl ) (Metoprolol Succinate) 100 Mg Tab.er.24h 100 Mg PO DAILY Losartan Potassium 100 Mg Tablet 100 Mg PO DAILY Hydrochlorothiazide Tablet (Hydrochlorothiazide) 50 Mg Tablet 25 Mg PO DAILY Gemfibrozil 600 Mg Tablet 300 Mg PO BID Gabapentin 300 Mg Capsule 300 Mg PO DAILY Fish Oil 1,200 Mg Softgel ([place]-3 Fatty Acids/Fish Oil) 1 Each Capsule 4 Each PO DAILY Cyclobenzaprine Hcl 10 Mg Tablet 10 Mg PO DAILY Atorvastatin Calcium 40 Mg Tablet 40 Mg PO HS Aspir 81 (Aspirin) 81 Mg Tablet.dr 81 Mg PO DAILY Amlodipine Besylate 10 Mg Tablet 10 Mg PO DAILY Allopurinol 300 Mg Tablet 150 Mg PO DAILY Vitals/I & O Vital Sign - Last 24 Hours 11/15/16 11/15/16 11/15/16 11/15/16 12:22 12:25 12:30 12:52 Pulse 66 66 Resp 15 15 B/P 125/64 Pulse Ox 91 93 O2 Delivery Nasal Cannula Nasal Cannula Nasal Cannula O2 Flow Rate 2.0 2.0 3.0 11/15/16 11/15/16 11/15/1616 13:02 13:17 14:10 15:22 Pulse 69 69 68 Resp 16 B/P 111/65 Pulse Ox 90 90 92 O2 Delivery Nasal Cannula Nasal Cannula Nasal Cannula O2 Flow Rate 2.0 2.0 3.0 11/15/16 11/15/16 11/15/16 11/15/16 15:38 19:30 20:00 20:48 Temp 98.0 98.0 Pulse 72 Resp 22 B/P 140/74 Pulse Ox 92 92 O2 Delivery Nasal Cannula Nasal Cannula Nasal Cannula Nasal Cannula O2 Flow Rate 3.0 4.0 3.0 4.0 11/15/16 11/15/16 11/15/16 11/15/16 21:48 22:15 22:20 22:50 Temp 98.2 98.2 Pulse 74 Resp 24 B/P 164/70 Pulse Ox 92 92 91 O2 Delivery Nasal Cannula Nasal Cannula Nasal Cannula O2 Flow Rate 5.0 5.0 5.0 11/15/16 11/16/16 11/16/16 11/16/16 23:03 00:03 03:00 10:23 Temp 98.3 98.2 98.3 98.2 Pulse 73 80 Resp 24 20 24 16 B/P 160/77 158/76 Pulse Ox 90 92 92 O2 Delivery Nasal Cannula Nasal Cannula Simple Mask O2 Flow Rate 5.0 5.5 Intake and Output 11/15/16 11/15/16 11/16/16 14:59 22:59 06:59 Intake Total 1045 ml 0 ml Output Total 350 ml 400 ml 900 ml Balance -350 ml 645 ml -900 ml ELMO SINGLETON MD Nov 16, 2016 11:44
[2016-11-16] MEDS ORDERED: IV RINGERS,LACTATED 1000ML 1,000 ML IV SCH (11:56)
[2016-11-16] MEDS ORDERED: LIDOCAINE 2% TOPICAL JELLY 30GM TUBE. TP ONE (13:19)
[2016-11-16] MEDS: IV NORMAL SALINE 1000ML BAG 1,000 ML IV SCH (13:28)
[2016-11-16] MEDS ORDERED: LIDOCAINE 2% 100 MG/5 ML DISP.SYRIN. ONE (13:34)
[2016-11-16] MEDS ORDERED: PROPOFOL 40 ML IV ONE (13:34)
[2016-11-16 15:14] VITALS: BP 146/65
--- NOTE | 2016-11-16 16:45 | CARD ---
APPROVED REPORT EXAM: Transesophageal echocardiogram with color flow Doppler. INDICATION Aortic Valve Disease Reason For Test : aortic stenosis PROCEDURE After obtaining informed consent, patient underwent transesophageal echo in the PACU. Type of Sedation : Conscious Sedation Sedation was provided by anesthesiologist, see EMR for medications administered. Transesophageal probe was inserted and advanced into esophagus by Lamonte Garcia MD. The WALLACE was performed without complications. Throughout the procedure, the blood pressure, pulse oximetry, cardiac rhythm, and rate were monitored . The patient tolerated the procedure without adverse effects. Recovery from conscious sedation was une ventful and vital signs were stable. LEFT VENTRICLE The left ventricle is normal size. There is normal left ventricular wall thickness. Left ventricle sy stolic function is normal. The Ejection Fraction is 60-65%. There is normal LV segmental wall motion. RIGHT VENTRICLE The right ventricle is normal size. The right ventricular systolic function is normal. ATRIA The left atrium size is normal. The right atrium size is normal. The interatrial septum is intact wit h no evidence for an atrial septal defect or patent foramen ovale as noted on 2-D or Doppler imaging. There is no thrombus noted in the left atrial appendage. AORTIC VALVE The aortic valve is trileaflet. The right and left coronary cusps are fused at the raphe without obvi ous obstruction noted. There is no significant aortic valvular stenosis. MITRAL VALVE The mitral valve is normal in structure and function. There is no mitral valve stenosis. Doppler and Color Flow revealed trace mitral regurgitation. TRICUSPID VALVE The tricuspid valve is normal in structure and function. Doppler and Color Flow revealed no tricuspid valve regurgitation noted. There is no tricuspid valve stenosis. PULMONIC VALVE The pulmonic valve is not well visualized. Doppler and Color Flow revealed no pulmonic valvular regur gitation. There is no pulmonic valvular stenosis. GREAT VESSELS The aortic root is normal in size. The ascending aorta is normal in size. Normal pulmonary venous jada w (Doppler). The IVC was visualized and appears normal in size. The SVC was visualized and appears no rmal in size. Critical Notification Critical Value: No <Conclusion> Left ventricle systolic function is normal. The Ejection Fraction is 60-65%. There is normal LV segmental wall motion. The aortic valve is trileaflet. The right and left coronary cusps are fused at the raphe without obvi ous obstruction noted. There is no significant aortic valvular stenosis.
[2016-11-16] MEDS: ASPIRIN ENTERIC COATED 81 MG TABLET.DR. PO SCH (18:02)
[2016-11-16 19:00] VITALS: BP 154/64
[2016-11-16] MEDS: ATORVASTATIN CALCIUM 40 MG TABLET. PO SCH (20:34)
[2016-11-16] MEDS: INSULIN DETEMIR 300 UNITS/3 ML INSULN.PEN. SQ SCH (20:36)
[2016-11-16 23:00] VITALS: BP 141/62
--- NOTE | 2016-11-16 23:09 | PDOC4 ---
PROCEDURE Procedure Procedure RENAL DIALYSIS/ LISA HD done F 180/HCO3 / 3K Qb 450 ml/min Qb 600 ml/min UF goal upto 4 kg. Doing OK No new issues. CPM. TYRON GONZALEZ MD Nov 16, 2016 23:09
[2016-11-17] VITALS (15 sets, daily range): BP systolic 85–156; BP diastolic 58–83
[2016-11-17] MEDS: PANTOPRAZOLE 40 MG TABLET. PO SCH (07:30)
[2016-11-17] MEDS: INSULIN ASPART 300 UNITS/3 ML INSULN.PEN SQ SCH ×6 (07:30→17:50)
[2016-11-17] MEDS: ASPIRIN ENTERIC COATED 81 MG TABLET.DR. PO SCH (08:00)
--- NOTE | 2016-11-17 08:08 | RAD ---
Portable chest, 11/16/2016: History: Predialysis catheter placement No previous chest radiographs are available at this time for comparison purposes. A right jugular dialysis type catheter is in place extending into the superior aspect of the right atrium. The heart is mildly enlarged. The pulmonary vascularity is normal. There are mild streaky basilar opacities. The upper lung huizar are clear. There is blunting of the left lateral costophrenic angle which may be due to scarring or small amount of pleural fluid. Moderate spurring is present in the spine. IMPRESSION: 1. A right jugular dialysis type catheter extends into the superior aspect of the right atrium. 2. Mild cardiomegaly. 3. Mild streaky bibasilar atelectasis/infiltrate. 4. Small left pleural effusion versus scarring.
[2016-11-17] MEDS: OMEGA-3 FATTY ACIDS/FISH OIL 1,000 MG CAPSULE. PO SCH (08:58)
[2016-11-17] MEDS: CYCLOBENZAPRINE 10 MG TABLET. PO SCH (08:58)
[2016-11-17] MEDS: GEMFIBROZIL 600 MG TABLET. PO SCH ×2 (08:59→21:13)
[2016-11-17] MEDS: GABAPENTIN 300 MG CAPSULE. PO SCH (08:59)
[2016-11-17] MEDS: LIRAGLUTIDE SQ SCH (09:00)
[2016-11-17] MEDS: MULTIVITAMIN with MINERAL TABLET. PO SCH (09:00)
[2016-11-17] MEDS: OXYCODONE/APAP 10/325 TABLET. PO SCH ×3 (09:00→21:14)
--- NOTE | 2016-11-17 09:01 | PDOC ---
PROGRESS NOTES Chief Complaint Chief Complaint cc: chest pain 1. CAD, s/p cath R wrist 2. ESRD - NEW HD 2. DM 2 with hyperglycemia 3. HTN, 4. Respiratory failure on 5 L Oxygen Plan supplemental oxygen SSI with Levemir consult pulmonology for hypoxia SW to arrange out pt HD HD catheter placement today 6 walk test labs reviwed, cardiology to evaluate him before DC. Bp controlled, goal< 130/80 History of Present Illness History of Present Illness MILD CHEST PAIN POSITIONAL NO FEVER NO CHILLS ON OXYGEN Vitals Vitals Vital Signs Date Time Temp Pulse Resp B/P Pulse Ox O2 Delivery O2 Flow Rate FiO2 11/17/16 07:30 98.0 81 20 140/74 93 Nasal Cannula 5.0 98.0 Physical Exam General: Alert, Oriented X3, Cooperative, No acute distress Heart: Regular rate, Normal S1, Normal S2, Other (S4; MAI 4/6 systolic murmur and 3/6 apical pansystolic murmur. ) Abdomen: Normal bowel sounds, Soft, No tenderness, No hepatosplenomegaly, No masses Extremities: No clubbing, No cyanosis, No edema, Normal pulses, No tenderness/ swelling Skin: No rashes, No breakdown, No significant lesion Labs LABS Laboratory Tests Test 11/16/16 10:12 11/16/16 11:51 11/16/16 17:31 11/16/16 20:28 Glucose (Fingerstick) 105mg/dL (70-99) 137mg/dL (70-99) 235mg/dL (70-99) 232mg/dL (70-99) Comment Review of Relevant I have reviewed the following items kaylie (where applicable) has been applied. Labs Laboratory Tests Test 11/15/16 12:50 11/15/16 14:30 11/15/16 16:15 11/15/16 18:13 Glucose (Fingerstick) 221mg/dL (70-99) 112mg/dL (70-99) Urine Collection Type Unknown Urine Color Yellow Urine Clarity Clear Urine pH 5.5 Urine Specific [place] 1.020 Urine Protein 50mg/dL (NEG-TRACE) Urine Glucose (UA) 100mg/dL (NEG) Urine Ketones (Stick) Negativemg/dL (NEG) Urine Blood Trace (NEG) Urine Nitrite Negative (NEG) Urine Bilirubin Negative (NEG) Urine Urobilinogen Dipstick 0.2mg/dL (0.2 mg/dL) Urine Leukocyte Esterase Negative (NEG) Urine RBC 0/HPF (0-2) Urine WBC 1-4/HPF (0-4) Urine Squamous Epithelial Cells Few/LPF Urine Bacteria 0/HPF (0-FEW) Urine Granular Casts Few/HPF Troponin I Quantitative < 0.017ng/mL (0.000-0.055) Hepatitis B Surface Antigen Negative (Negative) Hepatitis B Surface Antibody Non reactive (.) Test 11/15/16 20:14 11/16/16 04:30 11/16/16 10:12 11/16/16 11:51 Glucose (Fingerstick) 165mg/dL (70-99) 105mg/dL (70-99) 137mg/dL (70-99) Sodium Level 136mmol/L (136-145) Potassium Level 3.9mmol/L (3.5-5.1) Chloride Level 101mmol/L (98-107) Carbon Dioxide Level 26mmol/L (21-32) Anion Gap 9 (6-14) Blood Urea Nitrogen 52mg/dL (8-26) Creatinine 4.0mg/dL (0.7-1.3) Estimated GFR (Cockcroft-Gault) 15.9 Glucose Level 187mg/dL (70-99) Calcium Level 8.2mg/dL (8.5-10.1) Phosphorus Level 4.5mg/dL (2.6-4.7) Albumin 2.6g/dL (3.4-5.0) Hepatitis B Core Total Antibody Negative (Negative) Test 11/16/16 17:31 11/16/16 20:28 Glucose (Fingerstick) 235mg/dL (70-99) 232mg/dL (70-99) Laboratory Tests Test 11/16/16 10:12 11/16/16 11:51 11/16/16 17:31 11/16/16 20:28 Glucose (Fingerstick) 105mg/dL (70-99) 137mg/dL (70-99) 235mg/dL (70-99) 232mg/dL (70-99) Medications Current Medications Morphine Sulfate 2 mg PRN Q2HR PRN IV SEVERE PAIN Last administered on at 22:20; Start 11/15/16 at 05:45 Acetaminophen/ Hydrocodone Bitart (Lortab 5/325) 1 tab PRN Q6HRS PRN PO MODERATE PAIN Last administered on 11/15/16at 23:03; Start 11/15/16 at 05:45 Acetaminophen (Tylenol) 650 mg PRN Q6HRS PRN PO MILD PAIN / TEMP; Start at 06:00 Ondansetron HCl 4 mg 4 mg PRN Q6HRS PRN IV NAUSEA/VOMITING; Start 11/15/16 at 06:00 Sodium Chloride 1,000 ml @ 100 mls/hr Q10H IV Last administered on 11/15/16at 10:11; Start 11/15/16 at 06:00; Stop 11/15/16 at 22:02; Status DC Heparin Sodium/ Dextrose 500 ml @ 0 mls/hr CONT PRN IV SEE I/O RECORD Last administered on 11/15/16at 10:15; Start 11/15/16 at 09:45; Stop 11/15/16 at 15 :32; Status DC Heparin Sodium (Porcine) 2,850 unit PRN Q6HRS PRN IV FOR UFH LEVEL LESS THAN 0.2; Start 11/15/16 at 09:45; Stop 11/15/16 at 15:32; Status DC Aspirin (Ecotrin) 325 mg 1X ONCE PO Last administered on 11/15/16at 10:11; Start 11/15/16 at 09:45; Stop 11/15/16 at 09:46; Status DC Aspirin (Ecotrin) 81 mg DAILYWBKFT PO ; Start 11/16/16 at 08:00; Stop at 08:00; Status DC Sulfur Hexafluoride Microspheres (Lumason) 25 mg STK-MED ONCE IVP ; Start 11/15 at 09:57; Stop 11/15/16 at 09:58; Status DC Allopurinol (Zyloprim) 150 mg DAILY PO ; Start 11/16/16 at 09:00; Stop at 14:27; Status DC Alprazolam (Xanax) 0.5 mg Q8HRS PRN PO ANXIETY / AGITATION; Start 11/15/16 at 10:15 Amlodipine Besylate (Norvasc) 10 mg DAILY PO ; Start 11/16/16 at 09:00; Stop 11/16/16 at 09:00; Status DC Aspirin (Ecotrin) 81 mg DAILYWBKFT PO ; Start 11/16/16 at 08:00; Status UNV Atorvastatin Calcium (Lipitor) 40 mg HS PO Last administered on 11/16/16at 20: 34; Start 11/15/16 at 21:00 Cyclobenzaprine HCl (Flexeril) 10 mg DAILY PO ; Start 11/16/16 at 09:00 Gabapentin (Neurontin) 300 mg DAILY PO ; Start 11/16/16 at 09:00 Gemfibrozil (Lopid) 300 mg BID PO Last administered on 11/16/16at 20:34; Start 11/15/16 at 21:00 Insulin Aspart (Novolog) 1 units TIDAC SQ ; Start 11/15/16 at 11:30; Stop at 11:30; Status DC Metoprolol Succinate (Toprol Xl) 100 mg DAILY PO ; Start 11/16/16 at 09:00; Stop 11/16/16 at 09:00; Status DC Oxycodone/ Acetaminophen (Percocet 10/325) 1 tab TID PO Last administered on at 20:34; Start 11/15/16 at 14:00 Pantoprazole Sodium (Protonix) 40 mg DAILYAC PO ; Start 11/16/16 at 09:00 Sennosides (Senna) 8.6 mg DAILY PRN PO CONSTIPATION; Start 11/15/16 at 10:15 Insulin Detemir (Levemir) 50 units QHS SQ Last administered on 11/16/16at 20:36 ; Start 11/15/16 at 21:00 Non-Formulary Medication 0.2 mg DAILY SQ ; Start 11/16/16 at 09:00; Status UNV Non-Formulary Medication 5 mg HS PO ; Start 11/15/16 at 21:00; Status UNV Multivitamins/ Calcium (Thera M Plus) 1 tab DAILY PO ; Start 11/16/16 at 09:00 Fish Oil (Fish Oil) 4,000 mg DAILY PO ; Start 11/16/16 at 09:00 Insulin Aspart (Novolog) 0-9 UNITS TIDWMEALS SQ Last administered on at 18:08; Start 11/15/16 at 12:00 Dextrose 12.5 gm PRN Q15MIN PRN IV SEE COMMENTS; Start 11/15/16 at 10:15 Sulfur Hexafluoride Microspheres (Lumason) 25 mg 1X ONCE IVP Last administered on 11/15/16at 10:16; Start 11/15/16 at 10:15; Stop 11/15/16 at 10 :25; Status DC Nitroglycerin 200 mcg 200 mcg STK-MED ONCE .ROUTE ; Start 11/15/16 at 10:27; Stop 11/15/16 at 10:28; Status DC Heparin Sodium/ Sodium Chloride 1,000 ml @ As Directed STK-MED ONCE .ROUTE ; Start 11/15/16 at 10:27; Stop 11/15/16 at 10:28; Status DC Verapamil HCl (Verapamil) 5 mg STK-MED ONCE .ROUTE ; Start 11/15/16 at 10:27; Stop 11/15/16 at 10:28; Status DC Heparin Sodium (Porcine) 10,000 unit STK-MED ONCE .ROUTE ; Start 11/15/16 at 10 :27; Stop 11/15/16 at 10:28; Status DC Lidocaine HCl 20 ml STK-MED ONCE .ROUTE ; Start 11/15/16 at 10:27; Stop at 10:28; Status DC Insulin Aspart (Novolog) 15 units TIDAC SQ Last administered on 11/16/16at 18: 06; Start 11/15/16 at 11:30 Insulin Human Regular (Novolin R Vial) 10 unit 1X ONCE IV Last administered on 11/15/16at 10:52; Start 11/15/16 at 10:30; Stop 11/15/16 at 10:31; Status DC Fentanyl Citrate (Fentanyl 2ml Vial) 100 mcg STK-MED ONCE .ROUTE ; Start at 10:28; Stop 11/15/16 at 10:29; Status DC Midazolam HCl (Versed) 2 mg STK-MED ONCE .ROUTE ; Start 11/15/16 at 10:28; Stop 11/15/16 at 10:29; Status DC Lidocaine HCl 20 ml STK-MED ONCE .ROUTE ; Start 11/15/16 at 10:29; Stop at 10:30; Status DC Iodixanol (Visipaque 320) 100 ml STK-MED ONCE .ROUTE ; Start 11/15/16 at 10:29 ; Stop 11/15/16 at 10:30; Status DC Aspirin (Ecotrin) 81 mg DAILYWBKFT PO Last administered on 11/16/16at 18:02; Start 11/16/16 at 08:00 Nitroglycerin (Nitroglycerin) 200 mcg 1X ONCE IART Last administered on at 12:26; Start 11/15/16 at 11:30; Stop 11/15/16 at 11:31; Status DC Verapamil HCl (Verapamil) 2.5 mg 1X ONCE IART Last administered on 11/15/16at 12:25; Start 11/15/16 at 11:30; Stop 11/15/16 at 11:31; Status DC Heparin Sodium (Porcine) 2,500 unit 1X ONCE IART Last administered on at 12:28; Start 11/15/16 at 11:30; Stop 11/15/16 at 11:31; Status DC Heparin Sodium/ Sodium Chloride 2,000 unit 1X ONCE IART Last administered on 11/15/16at 12:20; Start 11/15/16 at 11:30; Stop 11/15/16 at 11:31; Status DC Midazolam HCl (Versed) 2 mg 1X ONCE IV Last administered on 11/15/16at 12:22; Start 11/15/16 at 11:30; Stop 11/15/16 at 11:31; Status DC Fentanyl Citrate (Fentanyl 2ml Vial) 100 mcg 1X ONCE IV Last administered on 11/15/16at 12:22; Start 11/15/16 at 11:30; Stop 11/15/16 at 11:31; Status DC Iodixanol (Visipaque 320) 100 ml 1X ONCE IART Last administered on 11/15/16at 12:20; Start 11/15/16 at 11:30; Stop 11/15/16 at 11:31; Status DC Lidocaine HCl 1 ml 1X ONCE IJ Last administered on 11/15/16at 12:19; Start at 11:30; Stop 11/15/16 at 11:31; Status DC Adenosine (Adenoscan) 90 mg STK-MED ONCE IV ; Start 11/15/16 at 11:59; Stop at 12:00; Status DC Heparin Sodium (Porcine) 4000 unit 4,000 unit 1X ONCE IV Last administered on 11/15/16at 12:30; Start 11/15/16 at 11:39; Stop 11/15/16 at 12:13; Status DC Adenosine/Sodium Chloride (Adenoscan/Iv Sodium Chloride 0.9% 50ml) 120 ml @ 0 mls/hr 1X ONCE IV Last administered on 11/15/16at 12:21; Start 11/15/16 at 12 :04; Stop 11/15/16 at 12:13; Status DC Lidocaine/Sodium Bicarbonate (Buffered Lidocaine 1%) 20 ml STK-MED ONCE IJ ; Start 11/15/16 at 12:43; Stop 11/15/16 at 12:44; Status DC Heparin Sodium/ Sodium Chloride 1,000 unit 1X ONCE IART Last administered on 11/15/16at 13:21; Start 11/15/16 at 13:15; Stop 11/15/16 at 13:16; Status DC Lidocaine/Sodium Bicarbonate (Buffered Lidocaine 1%) 20 ml 1X ONCE IJ Last administered on 11/15/16at 13:20; Start 11/15/16 at 13:15; Stop 11/15/16 at 13 :16; Status DC Heparin Sodium (Porcine) 2600 unit 2,600 unit 1X ONCE INT CAT Last administered on 11/15/16at 13:21; Start 11/15/16 at 13:15; Stop 11/15/16 at 13 :16; Status DC Sodium Chloride (Iv Sodium Chloride 0.9% 1000ml Bag) 1,000 ml @ 1,000 mls/hr Q1H PRN IV hypotension; Start 11/15/16 at 15:55; Stop 11/15/16 at 21:54; Status DC Diphenhydramine HCl (Benadryl) 25 mg 1X PRN PRN IV ITCHING; Start 11/15/16 at 16:00; Stop 11/16/16 at 15:59; Status DC Diphenhydramine HCl (Benadryl) 25 mg 1X PRN PRN IV ITCHING; Start 11/15/16 at 16:00; Stop 11/16/16 at 15:59; Status DC Sodium Chloride (Normal Saline Flush) 10 ml 1X PRN PRN IV AP catheter pack; Start 11/15/16 at 16:00; Stop 11/16/16 at 15:59; Status DC Sodium Chloride (Normal Saline Flush) 10 ml 1X PRN PRN IV [employer] 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[employer]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 catheter pack; Start 11/15/16 at 16:00; Stop 11/16/16 at 15:59; Status DC Labetalol HCl (Normodyne) 10 mg PRN Q1HR PRN IVP SBP > 180; Start 11/15/16 at 16:00; Stop 11/16/16 at 15:59; Status DC Info (PHARMACY MONITORING -- do not chart) 1 each PRN DAILY PRN MC SEE COMMENTS ; Start 11/15/16 at 16:00 Info (PHARMACY MONITORING -- do not chart) 1 each PRN DAILY PRN MC SEE COMMENTS ; Start 11/15/16 at 16:00; Status UNV Furosemide (Lasix) 40 mg 1X ONCE IVP Last administered on 11/15/16at 22:52; Start 11/15/16 at 22:45; Stop 11/15/16 at 22:46; Status DC Sodium Chloride (Normal Saline Flush) 10 ml QSHIFT PRN IV AFTER MEDS AND BLOOD DRAWS; Start 11/16/16 at 09:30 Lidocaine HCl (Xylocaine 2% Topical 5gm Tube) 1 martha 1X ONCE TP ; Start at 09:30; Stop 11/16/16 at 09:34; Status DC Lidocaine HCl (Viscous Lidocaine) 15 ml 1X ONCE MM ; Start 11/16/16 at 09:30; Stop 11/16/16 at 09:34; Status DC Benzocaine 3 spray 3 spray 1X ONCE MM ; Start 11/16/16 at 09:30; Stop at 09:34; Status DC Lactated Ringer's (Iv Lactated Ringers) 1,000 ml @ 50 mls/hr Q20H IV ; Start 11/16/16 at 11:56; Stop 11/16/16 at 23:55; Status DC Lidocaine HCl 30 martha 30 martha STK-MED ONCE TP ; Start 11/16/16 at 13:19; Stop at 13:20; Status DC Sodium Chloride 1,000 ml @ 30 mls/hr Q24H IV Last administered on 11/16/16at 13:28; Start 11/16/16 at 13:30 Propofol (Diprivan) 40 ml @ As Directed STK-MED ONCE IV ; Start 11/16/16 at 13: 34; Stop 11/16/16 at 13:35; Status DC Lidocaine HCl 100 mg STK-MED ONCE .ROUTE ; Start 11/16/16 at 13:34; Stop 11/16 at 13:35; Status DC Allopurinol (Zyloprim) 150 mg Q48H PO ; Start 11/18/16 at 09:00 Active Scripts Active Reported Metformin Hcl 1,000 Mg Tablet 1 Tab PO TID Melatonin 5 Mg Tablet 5 Mg PO HS Percocet 10-325 Mg Tablet (Oxycodone/Acetaminophen) 1 Each Tablet 1 Tab PO TID Lantus Solostar (Insulin Glargine,Hum.rec.anlog) 100 Unit/1 Ml Insuln.pen 50 Unit SQ QHS Xanax (Alprazolam) 0.5 Mg Tablet 0.5 Mg PO Q8HRS PRN Victoza 2-Can (Liraglutide) 0.6 Mg/0.1 Ml Pen.injctr 0.2 Mg SQ DAILY Senna Lax (Sennosides) 8.6 Mg Tablet 8.6 Mg PO DAILY PRN Pantoprazole Sodium 40 Mg Tablet.dr 40 Mg PO DAILY Novolog Flexpen (Insulin Aspart) 100 Unit/1 Ml Insuln.pen 1 Unit SQ TIDAC follow ordered sliding scale Multivitamins (Multivitamin) 1 Each Tablet 1 Each PO DAILY Toprol Xl (Metoprolol Succinate) 100 Mg Tab.er.24h 100 Mg PO DAILY Metoprolol Succinate ( Xl ) (Metoprolol Succinate) 100 Mg Tab.er.24h 100 Mg PO DAILY Losartan Potassium 100 Mg Tablet 100 Mg PO DAILY Hydrochlorothiazide Tablet (Hydrochlorothiazide) 50 Mg Tablet 25 Mg PO DAILY Gemfibrozil 600 Mg Tablet 300 Mg PO BID Gabapentin 300 Mg Capsule 300 Mg PO DAILY Fish Oil 1,200 Mg Softgel ([place]-3 Fatty Acids/Fish Oil) 1 Each Capsule 4 Each PO DAILY Cyclobenzaprine Hcl 10 Mg Tablet 10 Mg PO DAILY Atorvastatin Calcium 40 Mg Tablet 40 Mg PO HS Aspir 81 (Aspirin) 81 Mg Tablet.dr 81 Mg PO DAILY Amlodipine Besylate 10 Mg Tablet 10 Mg PO DAILY Allopurinol 300 Mg Tablet 150 Mg PO DAILY Vitals/I & O Vital Sign - Last 24 Hours 11/16/16 11/16/16 11/16/16 11/16/16 10:23 11:44 13:00 13:48 Temp 98.2 98.2 101.1 98.2 98.2 101.1 Pulse 80 80 78 Resp 16 20 22 B/P 158/76 160/71 141/82 Pulse Ox 92 92 93 O2 Delivery Simple Mask Nasal Cannula Nasal Cannula Nasal Cannula O2 Flow Rate 5.0 5 8 11/16/16 11/16/16 11/16/16 11/16/16 13:48 14:03 14:18 14:18 Temp 99.3 99.3 Pulse 74 75 76 Resp 22 14 18 B/P 104/48 103/65 127/68 Pulse Ox 90 91 92 O2 Delivery Nasal Cannula Nasal Cannula Nasal Cannula Nasal Cannula O2 Flow Rate 8 7 5 5 11/16/16 11/16/16 11/16/16 11/16/16 15:14 19:00 20:00 20:34 Temp 98.0 98.3 98.0 98.3 Pulse 80 79 Resp 16 24 20 B/P 146/65 154/64 Pulse Ox 92 90 91 O2 Delivery Nasal Cannula Nasal Cannula Nasal Cannula Nasal Cannula O2 Flow Rate 4.0 5.0 5.0 11/16/16 11/16/16 11/17/16 11/17/16 21:34 23:00 03:00 07:30 Temp 98.2 98.1 98.0 98.2 98.1 98.0 Pulse 73 67 81 Resp 24 20 22 20 B/P 141/62 137/74 140/74 Pulse Ox 93 94 93 O2 Delivery Simple Mask Simple Mask Nasal Cannula O2 Flow Rate 5.0 5.0 Intake and Output 11/16/16 11/16/16 11/17/16 15:00 23:00 07:00 Intake Total 350 ml 480 ml 0 ml Output Total 300 ml 875 ml Balance 50 ml -395 ml 0 ml BECKIE WOO MD Nov 17, 2016 09:01
--- NOTE | 2016-11-17 12:14 | PDOC ---
CARDIO Progress Notes Date and Time Date of Service 11/17/2016 Time of Evaluation 1130 Subjective Subjective: No Chest Pain, No shortness of breath, No Palpitations, No Dizziness, Other (ambulated with RT with good tolerance. ) Vitals Vitals Vital Signs Date Time Temp Pulse Resp B/P Pulse Ox O2 Delivery O2 Flow Rate FiO2 11/17/16 10:10 98.0 78 20 140/69 93 Nasal Cannula 5.0 98.0 Weight Weight [ ] Input and Output Intake and Output Intake and Output 11/17/16 07:00 Intake Total 830 ml Output Total 1175 ml Balance -345 ml Intake Oral 680 ml IV Total 150 ml Output Urine Total 1175 ml Laboratory Labs Laboratory Tests Test 11/16/16 11:51 11/16/16 17:31 11/16/16 20:28 11/17/16 07:41 Glucose (Fingerstick) 137mg/dL (70-99) 235mg/dL (70-99) 232mg/dL (70-99) 119mg/dL (70-99) Test 11/17/16 11:25 Glucose (Fingerstick) 174mg/dL (70-99) Physical Exam HEENT: Neck Supple W Full Motion Chest: Symmetric LUNGS: Other (diminished bases) Heart: S1S2, RRR, murmurs (AMI 4/6 systolic murmur ) Abdomen: Soft N/T Extremities: No Edema, No Calf Tenderness Neurology: alert, oriented, follow commands Assessment Assessment 1. Chest pain: noted with typical features with pretest probability of 65% suspicious for unstable angina requiring immediate LHC. LHC noted with patent RCA stent and mid LAD 50% unchanged from previous cath in 01/2014. 2. CAD: LHC as noted above. Continue with secondary prevention. Remains to be having sensation of chest congestion likely bronchitis with productive sputum, defer to PCP. Follow up with [facility] peoplesoft analyst in 4-6 weeks. 3. HTN: controlled, continue with current regimen 4. HLP: Continue with lipitor, lipids close to goal. Continue with lifestyle modifications and BG control. 5. DM2: Remains uncontrolled. Per PCP 6. CKD 5: HD has commence. Nephrology following. 7. Noncompliance with lifestyle modification: reinforced 8. Hx of CVA in 2003: no residuals. 9. Hx of CHARISSA: continued symptoms. Diagnosed 6 yrs ago but could not tolerate CPAP. 10. Anemia of chronic disease: Hgb 9 11. Obesity 12. Aortic valve fusion: with LHC, noted with moderate aortic stenosis based on difficulty with catheter advancement into the LV and echocardiogram. This prompted WALLACE and noted the aortic valve is trileaflet. The right and left coronary cusps are fused at the [place] without obvious obstruction noted. 13. New onset PAFIB/aflutter: Only noted episodes on 11/16/2016. It is possible that this could have contributed to pre hospitalization symptoms. Noted with multiple brief RVR episodes 11/16/2016 which could lone occurrence/stress induced with HD and WALLACE done yesterday with metoprolol not restarted. Discussed anticoagulation with pt and would prefer to hold this for now but I reinforced follow up with [facility] cardiology next week to set up for event monitor and discuss anticoagulation further. Continue on ASA for stroke prevention. Restart metoprolol. No BLADIMIR thrombus noted with WALLACE. RITU BARAHONA APRN Nov 17, 2016 12:14
[2016-11-17] MEDS: METOPROLOL SUCC 24HR ER 50 MG TAB.ER.24H. PO SCH ×3 (13:00→23:30)
[2016-11-17] MEDS: IV NORMAL SALINE 1000ML BAG 1,000 ML IV SCH (13:43)
[2016-11-17] MEDS ORDERED: METO100T11 PO (13:50)
[2016-11-17] MEDS ORDERED: HEPARIN for IV BOLUS 10,000 UNIT/10 ML VIAL. ONE (14:37)
[2016-11-17] MEDS ORDERED: LIDOCAINE 1%/EPI 1:100,000 20 ML VIAL. ONE (14:38)
[2016-11-17] MEDS ORDERED: MIDAZOLAM HCL 2 MG/2 ML VIAL. ONE ×2 (16:02→16:24)
[2016-11-17] MEDS ORDERED: CEFAZOLIN 1GM IVPB FOR OMNI 50 ML IV ONE ×2 (16:02→16:30)
[2016-11-17] MEDS ORDERED: FENTANYL PF 100 MCG/2 ML VIAL. ONE ×2 (16:02→16:24)
[2016-11-17] MEDS ORDERED: MIDAZOLAM HCL 2 MG/2 ML VIAL. IV ONE (16:30)
[2016-11-17] MEDS ORDERED: LIDOCAINE 1%/EPI 1:100,000 20 ML VIAL. IJ ONE (16:30)
[2016-11-17] MEDS ORDERED: FENTANYL PF 100 MCG/2 ML VIAL. IV ONE (16:30)
--- NOTE | 2016-11-17 16:37 | PDOC ---
MODERATE SEDATION ASSESSMENT RISKS/ALTERNATIVES Risks/Alternatives Risks and alternatives of this type of sedation and procedure discussed with: RISK/ALTERNATIVES: Patient H & P ON CHART H & P H & P on chart and reviewed for co-morbid conditions and appropriate labs. H&P ON CHART: Yes STATUS PREG STATUS ASSESSED: N/A MEDS/ALLERGIES REVIEWED Meds/Allergies Reviewed Medications and Allergies including time and route of recently administered narcotics and sedatives. MEDS/ALLERGIES REVIEWED: Yes ASA RATING ASA RATING: III AIRWAY ASSESSMENT Airway Assessment Airway patency, oral function limitations, presence of caps, crowns, dentures, partials, and ability to extend neck assessed. AIRWAY ASSESSMENT: Yes MALLAMPATI SCORE MALLAMPATI SCORE: II PRE-SEDATION ASSESSMENT PRE-SEDATION ASSESSMENT: Yes GERTRUDE ALLEN MD Nov 17, 2016 16:37
--- NOTE | 2016-11-17 16:38 | PDOC ---
Exam Supervisor [place] Supervisor [place] Secretary Of [employer] Secretary Of Police Carlos Zamora Pre-Procedure Diagnosis Pre-Procedure Diagnosis 51 YO diabetic, hypertensive male with CAD and with ESRD. Conversion from temp to tunneled HDC requested. Post-Procedure Diagnosis Post-Procedure Diagnosis Same Procedure Performed Procedure Performed Removal rt IJ temp HDC Sono/fluoro guided rt IJ tunneled HDC insertion Type of Anesthesia Type of Anesthesia Local + Mod sedation Estimated Blood Loss EBL: Minimal Specimens Specimans 14F 20cm Schon rt IJ temp HDC removed and discarded Drain/Tubes Drains/Tubes Rt IJ 15.5F 24cm DuraMax tunneled HDC inserted Condition of Patient Condition of Patient Stable. No apparent complication. Disposition Disposition From IR to 260. F/u with Renal. OK to use tunneled HDC. Full report to follow. GERTRUDE ALLEN MD Nov 17, 2016 16:38
[2016-11-17] MEDS: ALPRAZOLAM 0.5 MG TABLET PO PRN (16:59)
--- NOTE | 2016-11-17 17:06 | RAD ---
Ultrasound and fluoro guided placement of right IJ tunneled hemodialysis catheter Indication: 51-year-old male with hypertension, diabetes, coronary artery disease, and end-stage renal disease. Conversion from temporary to tunneled hemodialysis catheter has been requested by renal. Fluoro time: 0.2 minutes Kerma-Area Product: 1 Gycm2 Moderate sedation: 26 minutes moderate sedation was provided utilizing a total of 2.5 mg Versed and 125 mcg fentanyl, IV. The patient was appropriately monitored by a qualified independent observer throughout the time of moderate sedation. Antibiotic: A single dose of Ancef was administered within 1 hour of the procedure start time. Sterility: All elements of maximal sterile barrier technique, including the use of a cap, mask, sterile gown, sterile gloves, large sterile sheet, appropriate hand hygiene, and 2% chlorhexidine for cutaneous antisepsis (or acceptable alternative antiseptic per current guidelines) were utilized.: Procedure: Informed consent was obtained from the patient. He was placed supine on the angiography table. Preliminary ultrasound examination of right neck revealed continued wide patency of right internal jugular vein, which was documented with a hard copy ultrasound image. The indwelling right IJ 14 [place] 20 cm Schon temporary hemodialysis catheter was then easily removed utilizing gentle traction. Hemostasis was achieved with manual pressure over right internal jugular vein. Right neck and upper chest were then prepped and draped in the usual sterile fashion, utilizing all elements of maximal sterile barrier technique, as described above. Moderate sedation was provided with IV Versed and Fentanyl. 1 gram Ancef was given IV, prophylactically. Using aseptic technique and local anesthesia, a small skin incision was made lateral to right internal jugular vein, just above clavicle. Using aseptic technique, local anesthesia, and direct ultrasound guidance, a micropuncture needle was successfully introduced into right internal jugular vein. The micropuncture needle was then exchanged over a microguidewire for a micropuncture sheath, through which an Amplatz wire was advanced into IVC, under fluoroscopic control. A second small skin incision was then made along upper anterior aspect of right chest. A subcutaneous tunnel was then fashioned between the right chest and supraclavicular incisions. A 15.5 F 24 cm Dura Max dialysis catheter was pulled through the subcutaneous tunnel from inferior to superior, utilizing the tunneling device provided. The right IJ venostomy tract was then sequentially dilated and the 15.5 [place] dialysis catheter was easily advanced centrally through a 16 [place] peel-away sheath, and was positioned with its tip at the level of upper right atrium utilizing fluoroscopic guidance. This catheter was demonstrated to flush and aspirate normally, was packed, and was secured at the right chest exit site utilizing 2-0 Prolene and sterile dressing. The small supraclavicular incision was closed with 4-0 Vicryl, Steri-Strips, and sterile dressing. Patient tolerated the procedure well without apparent complication. Satisfactory position of the dialysis catheter was confirmed with a single fluoroscopic spot image. Impression: Successful, uneventful ultrasound and fluoro guided placement of right IJ 15.5 F 24 cm Dura Max tunneled hemodialysis catheter, following removal of right IJ 14 [place] 20 cm Schon temporary hemodialysis catheter, as described.
[2016-11-17] MEDS ORDERED: ALPRAZOLAM 0.5 MG TABLET PO ONE (18:15)
[2016-11-17] MEDS ORDERED: IPRATRPIUM/ALBUTEROL 0.5/2.5MG 3 ML NEBU. NEB ONE (21:00)
[2016-11-17] MEDS ORDERED: IPRATRPIUM/ALBUTEROL 0.5/2.5MG 3 ML NEBU. NEB PRN (21:00)
[2016-11-17] MEDS: ATORVASTATIN CALCIUM 40 MG TABLET. PO SCH (21:13)
[2016-11-17] MEDS: INSULIN DETEMIR 300 UNITS/3 ML INSULN.PEN. SQ SCH (21:17)
--- NOTE | 2016-11-17 21:56 | EKG ---
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
--- NOTE | 2016-11-17 23:48 | RAD ---
INDICATION: Shortness of breath with concern for pulmonary embolus. TECHNIQUE: Five mCi of Tc99m MAA administered intravenously and perfusion images obtained. Fifteen mCi of Xe-133 administered and ventilation images obtained. COMPARISON: Chest x-ray 1 day prior FINDINGS: There is patchy defects seen in the perfusion images but none that are definitively mismatched when compared to the corresponding ventilation images. IMPRESSION: Overall low probability of pulmonary embolus. Electronically signed by: Clifford Maxwell (Nov 17, 2016 23:46:36)
[2016-11-18] MEDS: HYDROCODONE/APAP 5/325MG TABLET. PO PRN (01:52)
[2016-11-18 03:00] VITALS: BP 110/65
[2016-11-18 07:28] VITALS: BP 116/69
[2016-11-18] MEDS: METOPROLOL SUCC 24HR ER 50 MG TAB.ER.24H. PO SCH ×2 (08:52→20:52)
[2016-11-18] MEDS: ASPIRIN ENTERIC COATED 81 MG TABLET.DR. PO SCH (08:52)
[2016-11-18] MEDS: OXYCODONE/APAP 10/325 TABLET. PO SCH ×3 (08:52→20:54)
[2016-11-18] MEDS: GABAPENTIN 300 MG CAPSULE. PO SCH (08:52)
[2016-11-18] MEDS: PANTOPRAZOLE 40 MG TABLET. PO SCH (08:52)
[2016-11-18] MEDS: OMEGA-3 FATTY ACIDS/FISH OIL 1,000 MG CAPSULE. PO SCH (08:53)
[2016-11-18] MEDS: CYCLOBENZAPRINE 10 MG TABLET. PO SCH (08:53)
[2016-11-18] MEDS: ALLOPURINOL 300 MG TABLET. PO SCH (08:53)
[2016-11-18] MEDS: GEMFIBROZIL 600 MG TABLET. PO SCH ×2 (08:54→20:53)
[2016-11-18] MEDS: MULTIVITAMIN with MINERAL TABLET. PO SCH (09:00)
[2016-11-18] MEDS: LIRAGLUTIDE SQ SCH (09:00)
[2016-11-18] MEDS: INSULIN ASPART 300 UNITS/3 ML INSULN.PEN SQ SCH ×6 (11:04→17:00)
[2016-11-18 11:05] VITALS: BP 129/79
--- NOTE | 2016-11-18 11:43 | PDOC3 ---
Discharge Summary Visit Information Date of Admission: Nov 15, 2016 Date of Discharge: Nov 18, 2016 Admitting Diagnosis Comment: 1. CAD, s/p cath R wrist 2. ESRD - NEW HD 2. DM 2 with hyperglycemia 3. HTN, 4. Respiratory failure on 5 L Oxygen Final Diagnosis Problems Medical Problems: (1) Chest pain Status: Acute (2) ESRD (end stage renal disease) Status: Acute Brief Hospital Course Allergies Allergies Coded Allergies Type Severity Reaction Last Updated Verified colchicine Allergy Intermediate 11/15/16 Yes Vital Signs Vital Signs Date Time Temp Pulse Resp B/P Pulse Ox O2 Delivery O2 Flow Rate FiO2 11/18/16 11:05 98.2 69 20 129/79 96 Nasal Cannula 3.0 98.2 Lab Results Laboratory Tests Test 11/16/16 11:51 11/16/16 17:31 11/16/16 20:28 11/17/16 07:41 Glucose (Fingerstick) 137mg/dL (70-99) 235mg/dL (70-99) 232mg/dL (70-99) 119mg/dL (70-99) Test 11/17/16 11:25 11/17/16 17:33 11/17/16 21:07 11/18/16 08:48 Glucose (Fingerstick) 174mg/dL (70-99) 170mg/dL (70-99) 207mg/dL (70-99) 86mg/dL (70-99) Test 11/18/16 10:44 Glucose (Fingerstick) 176mg/dL (70-99) Laboratory Tests Test 11/17/16 17:33 11/17/16 21:07 11/18/16 08:48 11/18/16 10:44 Glucose (Fingerstick) 170mg/dL (70-99) 207mg/dL (70-99) 86mg/dL (70-99) 176mg/dL (70-99) Brief Hospital Course Mr. Marcus is a 51 old male who has htn HTN and CKD, was transferred from [facility] and that needed cardiac cath,. NEeded to be stented ,. ALso now needing to initiate new HD, schedule will be [facility] has been set up. ONly change in meds is inc metoprolol from 50 to 100 qD per cards. Cont all other home meds Pt seen and examined Dw pt and Rn at bedside Consults Cards and renal DIspo: home Proc: Left and R heart cath, permannet HD cath inserted Dc 35 mins, Rx and education on dc Discharge Information Condition at Discharge: Improved, Stable Disposition/Orders: D/C to Home Scheduled Allopurinol (Allopurinol) 150 MG PO DAILY (Reported) Aspirin (Aspir 81) 81 MG PO DAILY (Reported) Atorvastatin Calcium (Atorvastatin Calcium) 40 MG PO HS (Reported) Cyclobenzaprine Hcl (Cyclobenzaprine Hcl) 10 MG PO DAILY (Reported) Gabapentin (Gabapentin) 300 MG PO DAILY (Reported) Gemfibrozil (Gemfibrozil) 300 MG PO BID (Reported) Insulin Aspart (Novolog Flexpen) 1 UNIT SQ TIDAC (Reported) Insulin Glargine,Hum.rec.anlog (Lantus Solostar) 50 UNIT SQ QHS (Reported) Liraglutide (Victoza 2-Can) 0.2 MG SQ DAILY (Reported) Melatonin (Melatonin) 5 MG PO HS (Reported) Metformin Hcl (Metformin Hcl) 1 TAB PO TID (Reported) Metoprolol Succinate (Metoprolol Succinate ( Xl )) 50 MG PO DAILY Multivitamin (Multivitamins) 1 EACH PO DAILY (Reported) [place]-3 Fatty Acids/Fish Oil (Fish Oil 1,200 Mg Softgel) 4 EACH PO DAILY ( Reported) Oxycodone/Apap 10-325 (Percocet 10-325 Mg Tablet) 1 TAB PO TID (Reported) Pantoprazole Sodium (Pantoprazole Sodium) 40 MG PO DAILY (Reported) Scheduled PRN Alprazolam (Xanax) 0.5 MG PO Q8HRS PRN PRN ANXIETY / AGITATION (Reported) Sennosides (Senna Lax) 8.6 MG PO DAILY PRN PRN CONSTIPATION (Reported) Discontinued Medications Amlodipine Besylate (Amlodipine Besylate) 10 MG PO DAILY (Reported) Hydrochlorothiazide (Hydrochlorothiazide Tablet) 25 MG PO DAILY (Reported) Losartan Potassium (Losartan Potassium) 100 MG PO DAILY (Reported) Metoprolol Succinate (Toprol Xl) 100 MG PO DAILY (Reported) ELMO SINGLETON MD Nov 18, 2016 11:43
[2016-11-18] MEDS ORDERED: DIALYSIS PATIENT. MC PRN ×2 (12:45)
[2016-11-18] MEDS: IV NORMAL SALINE 1000ML BAG 1,000 ML IV SCH (13:30)
--- NOTE | 2016-11-18 15:26 | PDOC4 ---
PROCEDURE Procedure Procedure DOS: 11/17/16. RENAL DIALYSIS/ [facility] done F 180/HCO3 / 3K Qb 450 ml/min Qb 600 ml/min UF goal upto 4 kg. Doing OK No new issues. CPM. TYRON GONZALEZ MD Nov 18, 2016 15:26
--- NOTE | 2016-11-18 15:27 | PDOC4 ---
PROCEDURE Procedure Procedure DOS: 11/18/16 RENAL DIALYSIS/ [facility] done F 180/HCO3 / 3K Qb 450 ml/min Qb 600 ml/min UF goal upto 4 kg. Doing OK No new issues. CPM. TYRON GONZALEZ MD Nov 18, 2016 15:27
[2016-11-18 17:24] VITALS: BP 121/65
[2016-11-18 19:36] VITALS: BP 100/64
[2016-11-18] MEDS: ATORVASTATIN CALCIUM 40 MG TABLET. PO SCH (20:53)
[2016-11-18] MEDS: INSULIN DETEMIR 300 UNITS/3 ML INSULN.PEN. SQ SCH (20:57)
[2016-11-18 22:16] VITALS: BP 107/73
[2016-11-19 02:47] VITALS: BP 99/68
[2016-11-19 07:54] VITALS: BP 137/72
[2016-11-19] MEDS: INSULIN ASPART 300 UNITS/3 ML INSULN.PEN SQ SCH ×6 (08:00→17:52)
[2016-11-19] MEDS: OMEGA-3 FATTY ACIDS/FISH OIL 1,000 MG CAPSULE. PO SCH (08:48)
[2016-11-19] MEDS: OXYCODONE/APAP 10/325 TABLET. PO SCH ×3 (08:49→21:05)
[2016-11-19] MEDS: MULTIVITAMIN with MINERAL TABLET. PO SCH (08:49)
[2016-11-19] MEDS: GEMFIBROZIL 600 MG TABLET. PO SCH ×2 (08:49→21:05)
[2016-11-19] MEDS: GABAPENTIN 300 MG CAPSULE. PO SCH (08:49)
[2016-11-19] MEDS: CYCLOBENZAPRINE 10 MG TABLET. PO SCH (08:49)
[2016-11-19] MEDS: ASPIRIN ENTERIC COATED 81 MG TABLET.DR. PO SCH (08:50)
[2016-11-19] MEDS: PANTOPRAZOLE 40 MG TABLET. PO SCH (08:50)
[2016-11-19] MEDS: METOPROLOL SUCC 24HR ER 50 MG TAB.ER.24H. PO SCH ×2 (08:50→21:05)
[2016-11-19] MEDS: LIRAGLUTIDE SQ SCH (08:57)
--- NOTE | 2016-11-19 10:00 | PDOC ---
PROGRESS NOTES Chief Complaint Chief Complaint 1. CAD, s/p cath R wrist 2. ESRD - NEW HD 2. DM 2 with hyperglycemia 3. HTN, 4. Respiratory failure on 5 L Oxygen History of Present Illness History of Present Illness medically ready for dc but just insurance issues with covering/set up of outpt HD\ Will be sorted out on Sunday HYpoglycemic 60s thsi AM ROS: neg 14 pt PLAn: Dec novolog to 10 TID Dc on when issues re insurance and HD set up have been sorted out Vitals Vitals Vital Signs Date Time Temp Pulse Resp B/P Pulse Ox O2 Delivery O2 Flow Rate FiO2 11/19/16 08:50 77 137/72 11/19/16 08:49 Nasal Cannula 3.0 11/19/16 07:54 97.4 18 96 97.4 Physical Exam General: Alert, Oriented X3, Cooperative, No acute distress Heart: Regular rate, Normal S1, Normal S2, Other (S4; MAI 4/6 systolic murmur and 3/6 apical pansystolic murmur. ) Abdomen: Normal bowel sounds, Soft, No tenderness, No hepatosplenomegaly, No masses Extremities: No clubbing, No cyanosis, No edema, Normal pulses, No tenderness/ swelling Skin: No rashes, No breakdown, No significant lesion Labs LABS Laboratory Tests Test 11/18/16 10:44 11/18/16 11:36 11/18/16 16:00 11/18/16 16:37 Glucose (Fingerstick) 176mg/dL (70-99) 169mg/dL (70-99) 60mg/dL (70-99) 86mg/dL (70-99) Test 11/18/16 20:30 11/19/16 07:56 Glucose (Fingerstick) 261mg/dL (70-99) 129mg/dL (70-99) Assessment and Plan Assessmemt and Plan Problems Medical Problems: (1) Chest pain Status: Acute (2) ESRD (end stage renal disease) Status: Acute Problems: Comment Review of Relevant I have reviewed the following items kaylie (where applicable) has been applied. Labs Laboratory Tests Test 11/17/16 11:25 11/17/16 17:33 11/17/16 21:07 11/18/16 08:48 Glucose (Fingerstick) 174mg/dL (70-99) 170mg/dL (70-99) 207mg/dL (70-99) 86mg/dL (70-99) Test 11/18/16 10:44 11/18/16 11:36 11/18/16 16:00 11/18/16 16:37 Glucose (Fingerstick) 176mg/dL (70-99) 169mg/dL (70-99) 60mg/dL (70-99) 86mg/dL (70-99) Test 11/18/16 20:30 11/19/16 07:56 Glucose (Fingerstick) 261mg/dL (70-99) 129mg/dL (70-99) Laboratory Tests Test 11/18/16 10:44 11/18/16 11:36 11/18/16 16:00 11/18/16 16:37 Glucose (Fingerstick) 176mg/dL (70-99) 169mg/dL (70-99) 60mg/dL (70-99) 86mg/dL (70-99) Test 11/18/16 20:30 11/19/16 07:56 Glucose (Fingerstick) 261mg/dL (70-99) 129mg/dL (70-99) Medications Current Medications Morphine Sulfate 2 mg PRN Q2HR PRN IV SEVERE PAIN Last administered on at 22:20; Start 11/15/16 at 05:45 Acetaminophen/ Hydrocodone Bitart (Lortab 5/325) 1 tab PRN Q6HRS PRN PO MODERATE PAIN Last administered on 11/18/16at 01:52; Start 11/15/16 at 05:45 Acetaminophen (Tylenol) 650 mg PRN Q6HRS PRN PO MILD PAIN / TEMP; Start at 06:00 Ondansetron HCl 4 mg 4 mg PRN Q6HRS PRN IV NAUSEA/VOMITING; Start 11/15/16 at 06:00 Sodium Chloride 1,000 ml @ 100 mls/hr Q10H IV Last administered on 11/15/16at 10:11; Start 11/15/16 at 06:00; Stop 11/15/16 at 22:02; Status DC Heparin Sodium/ Dextrose 500 ml @ 0 mls/hr CONT PRN IV SEE I/O RECORD Last administered on 11/15/16at 10:15; Start 11/15/16 at 09:45; Stop 11/15/16 at 15 :32; Status DC Heparin Sodium (Porcine) 2,850 unit PRN Q6HRS PRN IV FOR UFH LEVEL LESS THAN 0.2; Start 11/15/16 at 09:45; Stop 11/15/16 at 15:32; Status DC Aspirin (Ecotrin) 325 mg 1X ONCE PO Last administered on 11/15/16at 10:11; Start 11/15/16 at 09:45; Stop 11/15/16 at 09:46; Status DC Aspirin (Ecotrin) 81 mg DAILYWBKFT PO ; Start 11/16/16 at 08:00; Stop at 08:00; Status DC Sulfur Hexafluoride Microspheres (Lumason) 25 mg STK-MED ONCE IVP ; Start 11/15 at 09:57; Stop 11/15/16 at 09:58; Status DC Allopurinol (Zyloprim) 150 mg DAILY PO ; Start 11/16/16 at 09:00; Stop at 14:27; Status DC Alprazolam (Xanax) 0.5 mg Q8HRS PRN PO ANXIETY / AGITATION Last administered on 11/17/16at 16:59; Start 11/15/16 at 10:15 Amlodipine Besylate (Norvasc) 10 mg DAILY PO ; Start 11/16/16 at 09:00; Stop 11/16/16 at 09:00; Status DC Aspirin (Ecotrin) 81 mg DAILYWBKFT PO ; Start 11/16/16 at 08:00; Status UNV Atorvastatin Calcium (Lipitor) 40 mg HS PO Last administered on 11/18/16at 20: 53; Start 11/15/16 at 21:00 Cyclobenzaprine HCl (Flexeril) 10 mg DAILY PO Last administered on 11/19/16 08: 49; Start 11/16/16 at 09:00 Gabapentin (Neurontin) 300 mg DAILY PO Last administered on 11/19/16 08:49; Start 11/16/16 at 09:00 Gemfibrozil (Lopid) 300 mg BID PO Last administered on 11/19/16 08:49; Start 11/15/16 at 21:00 Insulin Aspart (Novolog) 1 units TIDAC SQ ; Start 11/15/16 at 11:30; Stop at 11:30; Status DC Metoprolol Succinate (Toprol Xl) 100 mg DAILY PO ; Start 11/16/16 at 09:00; Stop 11/16/16 at 09:00; Status DC Oxycodone/ Acetaminophen (Percocet 10/325) 1 tab TID PO Last administered on 08:49; Start 11/15/16 at 14:00 Pantoprazole Sodium (Protonix) 40 mg DAILYAC PO Last administered on 11/19/16 08:50; Start 11/16/16 at 09:00 Sennosides (Senna) 8.6 mg DAILY PRN PO CONSTIPATION; Start 11/15/16 at 10:15 Insulin Detemir (Levemir) 50 units QHS SQ Last administered on 11/18/16at 20:57 ; Start 11/15/16 at 21:00 Non-Formulary Medication 0.2 mg DAILY SQ ; Start 11/16/16 at 09:00; Status UNV Non-Formulary Medication 5 mg HS PO ; Start 11/15/16 at 21:00; Status UNV Multivitamins/ Calcium (Thera M Plus) 1 tab DAILY PO Last administered on 08:49; Start 11/16/16 at 09:00 Fish Oil (Fish Oil) 4,000 mg DAILY PO Last administered on 11/19/16 08:48; Start 11/16/16 at 09:00 Insulin Aspart (Novolog) 0-9 UNITS TIDWMEALS SQ Last administered on at 11:06; Start 11/15/16 at 12:00 Dextrose 12.5 gm PRN Q15MIN PRN IV SEE COMMENTS; Start 11/15/16 at 10:15 Sulfur Hexafluoride Microspheres (Lumason) 25 mg 1X ONCE IVP Last administered on 11/15/16at 10:16; Start 11/15/16 at 10:15; Stop 11/15/16 at 10 :25; Status DC Nitroglycerin 200 mcg 200 mcg STK-MED ONCE .ROUTE ; Start 11/15/16 at 10:27; Stop 11/15/16 at 10:28; Status DC Heparin Sodium/ Sodium Chloride 1,000 ml @ As Directed STK-MED ONCE .ROUTE ; Start 11/15/16 at 10:27; Stop 11/15/16 at 10:28; Status DC Verapamil HCl (Verapamil) 5 mg STK-MED ONCE .ROUTE ; Start 11/15/16 at 10:27; Stop 11/15/16 at 10:28; Status DC Heparin Sodium (Porcine) 10,000 unit STK-MED ONCE .ROUTE ; Start 11/15/16 at 10 :27; Stop 11/15/16 at 10:28; Status DC Lidocaine HCl 20 ml STK-MED ONCE .ROUTE ; Start 11/15/16 at 10:27; Stop at 10:28; Status DC Insulin Aspart (Novolog) 15 units TIDAC SQ Last administered on 11/19/16 08:56 ; Start 11/15/16 at 11:30 Insulin Human Regular (Novolin R Vial) 10 unit 1X ONCE IV Last administered on 11/15/16at 10:52; Start 11/15/16 at 10:30; Stop 11/15/16 at 10:31; Status DC Fentanyl Citrate (Fentanyl 2ml Vial) 100 mcg STK-MED ONCE .ROUTE ; Start at 10:28; Stop 11/15/16 at 10:29; Status DC Midazolam HCl (Versed) 2 mg STK-MED ONCE .ROUTE ; Start 11/15/16 at 10:28; Stop 11/15/16 at 10:29; Status DC Lidocaine HCl 20 ml STK-MED ONCE .ROUTE ; Start 11/15/16 at 10:29; Stop at 10:30; Status DC Iodixanol (Visipaque 320) 100 ml STK-MED ONCE .ROUTE ; Start 11/15/16 at 10:29 ; Stop 11/15/16 at 10:30; Status DC Aspirin (Ecotrin) 81 mg DAILYWBKFT PO Last administered on 11/19/16 08:50; Start 11/16/16 at 08:00 Nitroglycerin (Nitroglycerin) 200 mcg 1X ONCE IART Last administered on at 12:26; Start 11/15/16 at 11:30; Stop 11/15/16 at 11:31; Status DC Verapamil HCl (Verapamil) 2.5 mg 1X ONCE IART Last administered on 11/15/16at 12:25; Start 11/15/16 at 11:30; Stop 11/15/16 at 11:31; Status DC Heparin Sodium (Porcine) 2,500 unit 1X ONCE IART Last administered on at 12:28; Start 11/15/16 at 11:30; Stop 11/15/16 at 11:31; Status DC Heparin Sodium/ Sodium Chloride 2,000 unit 1X ONCE IART Last administered on 11/15/16at 12:20; Start 11/15/16 at 11:30; Stop 11/15/16 at 11:31; Status DC Midazolam HCl (Versed) 2 mg 1X ONCE IV Last administered on 11/15/16at 12:22; Start 11/15/16 at 11:30; Stop 11/15/16 at 11:31; Status DC Fentanyl Citrate (Fentanyl 2ml Vial) 100 mcg 1X ONCE IV Last administered on 11/15/16at 12:22; Start 11/15/16 at 11:30; Stop 11/15/16 at 11:31; Status DC Iodixanol (Visipaque 320) 100 ml 1X ONCE IART Last administered on 11/15/16at 12:20; Start 11/15/16 at 11:30; Stop 11/15/16 at 11:31; Status DC Lidocaine HCl 1 ml 1X ONCE IJ Last administered on 11/15/16at 12:19; Start at 11:30; Stop 11/15/16 at 11:31; Status DC Adenosine (Adenoscan) 90 mg STK-MED ONCE IV ; Start 11/15/16 at 11:59; Stop at 12:00; Status DC Heparin Sodium (Porcine) 4000 unit 4,000 unit 1X ONCE IV Last administered on 11/15/16at 12:30; Start 11/15/16 at 11:39; Stop 11/15/16 at 12:13; Status DC Adenosine/Sodium Chloride (Adenoscan/Iv Sodium Chloride 0.9% 50ml) 120 ml @ 0 mls/hr 1X ONCE IV Last administered on 11/15/16at 12:21; Start 11/15/16 at 12 :04; Stop 11/15/16 at 12:13; Status DC Lidocaine/Sodium Bicarbonate (Buffered Lidocaine 1%) 20 ml STK-MED ONCE IJ ; Start 11/15/16 at 12:43; Stop 11/15/16 at 12:44; Status DC Heparin Sodium/ Sodium Chloride 1,000 unit 1X ONCE IART Last administered on 11/15/16at 13:21; Start 11/15/16 at 13:15; Stop 11/15/16 at 13:16; Status DC Lidocaine/Sodium Bicarbonate (Buffered Lidocaine 1%) 20 ml 1X ONCE IJ Last administered on 11/15/16at 13:20; Start 11/15/16 at 13:15; Stop 11/15/16 at 13 :16; Status DC Heparin Sodium (Porcine) 2600 unit 2,600 unit 1X ONCE INT CAT Last administered on 11/15/16at 13:21; Start 11/15/16 at 13:15; Stop 11/15/16 at 13 :16; Status DC Sodium Chloride (Iv Sodium Chloride 0.9% 1000ml Bag) 1,000 ml @ 1,000 mls/hr Q1H PRN IV hypotension; Start 11/15/16 at 15:55; Stop 11/15/16 at 21:54; Status DC Diphenhydramine HCl (Benadryl) 25 mg 1X PRN PRN IV ITCHING; Start 11/15/16 at 16:00; Stop 11/16/16 at 15:59; Status DC Diphenhydramine HCl (Benadryl) 25 mg 1X PRN PRN IV ITCHING; Start 11/15/16 at 16:00; Stop 11/16/16 at 15:59; Status DC Sodium Chloride (Normal Saline Flush) 10 ml 1X PRN PRN IV AP catheter pack; Start 11/15/16 at 16:00; Stop 11/16/16 at 15:59; Status DC Sodium Chloride (Normal Saline Flush) 10 ml 1X PRN PRN IV [employer]ELOPMENT [employer]NAGER catheter pack; Start 11/15/16 at 16:00; Stop 11/16/16 at 15:59; Status DC Labetalol HCl (Normodyne) 10 mg PRN Q1HR PRN IVP SBP > 180; Start 11/15/16 at 16:00; Stop 11/16/16 at 15:59; Status DC Info (PHARMACY MONITORING -- do not chart) 1 each PRN DAILY PRN MC SEE COMMENTS ; Start 11/15/16 at 16:00 Info (PHARMACY MONITORING -- do not chart) 1 each PRN DAILY PRN MC SEE COMMENTS ; Start 11/15/16 at 16:00; Status UNV Furosemide (Lasix) 40 mg 1X ONCE IVP Last administered on 11/15/16at 22:52; Start 11/15/16 at 22:45; Stop 11/15/16 at 22:46; Status DC Sodium Chloride (Normal Saline Flush) 10 ml QSHIFT PRN IV AFTER MEDS AND BLOOD DRAWS; Start 11/16/16 at 09:30 Lidocaine HCl (Xylocaine 2% Topical 5gm Tube) 1 martha 1X ONCE TP ; Start at 09:30; Stop 11/16/16 at 09:34; Status DC Lidocaine HCl (Viscous Lidocaine) 15 ml 1X ONCE MM ; Start 11/16/16 at 09:30; Stop 11/16/16 at 09:34; Status DC Benzocaine 3 spray 3 spray 1X ONCE MM ; Start 11/16/16 at 09:30; Stop at 09:34; Status DC Lactated Ringer's (Iv Lactated Ringers) 1,000 ml @ 50 mls/hr Q20H IV ; Start 11/16/16 at 11:56; Stop 11/16/16 at 23:55; Status DC Lidocaine HCl 30 martha 30 martha STK-MED ONCE TP ; Start 11/16/16 at 13:19; Stop at 13:20; Status DC Sodium Chloride 1,000 ml @ 30 mls/hr Q24H IV Last administered on 11/17/16at 13:43; Start 11/16/16 at 13:30 Propofol (Diprivan) 40 ml @ As Directed STK-MED ONCE IV ; Start 11/16/16 at 13: 34; Stop 11/16/16 at 13:35; Status DC Lidocaine HCl 100 mg STK-MED ONCE .ROUTE ; Start 11/16/16 at 13:34; Stop 11/16 at 13:35; Status DC Allopurinol (Zyloprim) 150 mg Q48H PO Last administered on 11/18/16at 08:53; Start 11/18/16 at 09:00 Metoprolol Succinate (Toprol Xl) 50 mg BID PO Last administered on 11/19/16t 08: 50; Start 11/17/16 at 13:00 Heparin Sodium (Porcine) 10,000 unit STK-MED ONCE .ROUTE ; Start 11/17/16 at 14 :37; Stop 11/17/16 at 14:38; Status DC Lidocaine/ Epinephrine 20 ml 20 ml STK-MED ONCE .ROUTE ; Start 11/17/16 at 14: 38; Stop 11/17/16 at 14:39; Status DC Heparin Sodium/ Sodium Chloride 500 ml @ As Directed STK-MED ONCE .ROUTE ; Start 11/17/16 at 14:38; Stop 11/17/16 at 14:39; Status DC Fentanyl Citrate (Fentanyl 2ml Vial) 100 mcg STK-MED ONCE .ROUTE ; Start at 16:02; Stop 11/17/16 at 16:03; Status DC Midazolam HCl 2 mg 2 mg STK-MED ONCE .ROUTE ; Start 11/17/16 at 16:02; Stop at 16:03; Status DC Cefazolin Sodium (Ancef 1gm Ivpb For Omni) 50 ml @ As Directed STK-MED ONCE IV ; Start 11/17/16 at 16:02; Stop 11/17/16 at 16:03; Status DC Heparin Sodium/ Sodium Chloride 1,000 unit 1X ONCE IART Last administered on 11/17/16at 16:45; Start 11/17/16 at 16:30; Stop 11/17/16 at 16:31; Status DC Midazolam HCl (Versed) 2 mg 1X ONCE IV Last administered on 11/17/16at 16:43; Start 11/17/16 at 16:30; Stop 11/17/16 at 16:31; Status DC Fentanyl Citrate 100 mcg 100 mcg 1X ONCE IV Last administered on 11/17/16at 16 :44; Start 11/17/16 at 16:30; Stop 11/17/16 at 16:31; Status DC Cefazolin Sodium (Ancef 1gm Ivpb For Omni) 50 ml @ 100 mls/hr 1X ONCE IV Last administered on 11/17/16at 16:44; Start 11/17/16 at 16:30; Stop 11/17/16 at 16:59; Status DC Lidocaine/ Epinephrine (Xylocaine 1%-Epi 1:100,000) 12 ml 1X ONCE IJ Last administered on 11/17/16at 16:42; Start 11/17/16 at 16:30; Stop 11/17/16 at 16 :31; Status DC Heparin Sodium (Porcine) 4,000 unit 1X ONCE INT CAT Last administered on 11/17at 16:45; Start 11/17/16 at 16:30; Stop 11/17/16 at 16:31; Status DC Fentanyl Citrate (Fentanyl 2ml Vial) 100 mcg STK-MED ONCE .ROUTE ; Start at 16:24; Stop 11/17/16 at 16:25; Status DC Midazolam HCl (Versed) 2 mg STK-MED ONCE .ROUTE ; Start 11/17/16 at 16:24; Stop 11/17/16 at 16:25; Status DC Alprazolam (Xanax) 0.5 mg 1X ONCE PO Last administered on 11/17/16at 18:08; Start 11/17/16 at 18:15; Stop 11/17/16 at 18:16; Status DC Albuterol/ Ipratropium (Duoneb) 3 ml 1X ONCE NEB ; Start 11/17/16 at 21:00; Stop 11/17/16 at 21:00; Status DC Albuterol/ Ipratropium (Duoneb) 3 ml PRN 1X PRN NEB PER PROVIDER INSTRUCTION; Start 11/17/16 at 21:00; Status Cancel Info (PHARMACY MONITORING -- do not chart) 1 each PRN DAILY PRN MC SEE COMMENTS ; Start 11/18/16 at 12:45; Status UNV Info (PHARMACY MONITORING -- do not chart) 1 each PRN DAILY PRN MC SEE COMMENTS ; Start 11/18/16 at 12:45; Status UNV Active Scripts Active Metoprolol Succinate ( Xl ) (Metoprolol Succinate) 100 Mg Tab.er.24h 50 Mg PO DAILY Reported Metformin Hcl 1,000 Mg Tablet 1 Tab PO TID Melatonin 5 Mg Tablet 5 Mg PO HS Percocet 10-325 Mg Tablet (Oxycodone/Acetaminophen) 1 Each Tablet 1 Tab PO TID Lantus Solostar (Insulin Glargine,Hum.rec.anlog) 100 Unit/1 Ml Insuln.pen 50 Unit SQ QHS Xanax (Alprazolam) 0.5 Mg Tablet 0.5 Mg PO Q8HRS PRN Victoza 2-Can (Liraglutide) 0.6 Mg/0.1 Ml Pen.injctr 0.2 Mg SQ DAILY Senna Lax (Sennosides) 8.6 Mg Tablet 8.6 Mg PO DAILY PRN Pantoprazole Sodium 40 Mg Tablet.dr 40 Mg PO DAILY Novolog Flexpen (Insulin Aspart) 100 Unit/1 Ml Insuln.pen 1 Unit SQ TIDAC follow ordered sliding scale Multivitamins (Multivitamin) 1 Each Tablet 1 Each PO DAILY Gemfibrozil 600 Mg Tablet 300 Mg PO BID Gabapentin 300 Mg Capsule 300 Mg PO DAILY Fish Oil 1,200 Mg Softgel ([place]-3 Fatty Acids/Fish Oil) 1 Each Capsule 4 Each PO DAILY Cyclobenzaprine Hcl 10 Mg Tablet 10 Mg PO DAILY Atorvastatin Calcium 40 Mg Tablet 40 Mg PO HS Aspir 81 (Aspirin) 81 Mg Tablet.dr 81 Mg PO DAILY Allopurinol 300 Mg Tablet 150 Mg PO DAILY Vitals/I & O Vital Sign - Last 24 Hours 11/18/16 11/18/16 11/18/16 11/18/16 11:05 17:24 19:36 20:00 Temp 98.2 97.5 98.3 98.2 97.5 98.3 Pulse 69 77 78 Resp 20 16 B/P 129/79 121/65 100/64 Pulse Ox 96 96 O2 Delivery Nasal Cannula Nasal Cannula Nasal Cannula Nasal Cannula O2 Flow Rate 3.0 3.0 3.0 3.0 11/18/16 11/18/16 11/18/16 11/18/16 20:52 20:54 21:54 22:16 Temp 98.4 98.4 Pulse 78 79 Resp 18 B/P 100/64 107/73 Pulse Ox 94 O2 Delivery Nasal Cannula Nasal Cannula Nasal Cannula O2 Flow Rate 3.0 3.0 3.0 11/19/16 11/19/16 11/19/16 11/19/16 02:47 07:54 08:49 08:50 Temp 98.5 97.4 98.5 97.4 Pulse 71 77 77 Resp 16 18 B/P 99/68 137/72 137/72 Pulse Ox 94 96 O2 Delivery Nasal Cannula Nasal Cannula Nasal Cannula O2 Flow Rate 3.0 3.0 3.0 Intake and Output 11/18/16 11/18/16 11/19/16 15:00 23:00 07:00 Intake Total 1080 ml 600 ml Output Total 200 ml 400 ml Balance 880 ml 200 ml ELMO SINGLETON MD Nov 19, 2016 10:00
[2016-11-19 10:27] VITALS: BP 107/65
[2016-11-19 14:19] VITALS: BP 152/80
--- NOTE | 2016-11-19 15:52 | PDOC ---
Provider Note Provider Note RENAL F/U : [facility] Doing fair No new c/o VSS Afebrile Exam stable Labs Ok HD out pt placement pnd TYRON GONZALEZ MD Nov 19, 2016 15:52
[2016-11-19 19:25] VITALS: BP 125/78
[2016-11-19] MEDS: ATORVASTATIN CALCIUM 40 MG TABLET. PO SCH (21:05)
[2016-11-19] MEDS: ALPRAZOLAM 0.5 MG TABLET PO PRN (21:07)
[2016-11-19] MEDS: INSULIN DETEMIR 300 UNITS/3 ML INSULN.PEN. SQ SCH (21:14)
[2016-11-19 23:48] VITALS: BP 114/69
[2016-11-20 03:55] VITALS: BP 139/79
[2016-11-20] MEDS: INSULIN ASPART 300 UNITS/3 ML INSULN.PEN SQ SCH ×6 (07:30→17:33)
[2016-11-20 07:39] VITALS: BP 109/72
[2016-11-20] MEDS: LIRAGLUTIDE SQ SCH (09:00)
[2016-11-20] MEDS: OMEGA-3 FATTY ACIDS/FISH OIL 1,000 MG CAPSULE. PO SCH (09:16)
[2016-11-20] MEDS: OXYCODONE/APAP 10/325 TABLET. PO SCH ×3 (09:16→21:06)
[2016-11-20] MEDS: CYCLOBENZAPRINE 10 MG TABLET. PO SCH (09:16)
[2016-11-20] MEDS: MULTIVITAMIN with MINERAL TABLET. PO SCH (09:16)
[2016-11-20] MEDS: GEMFIBROZIL 600 MG TABLET. PO SCH ×2 (09:17→21:07)
[2016-11-20] MEDS: ASPIRIN ENTERIC COATED 81 MG TABLET.DR. PO SCH (09:17)
[2016-11-20] MEDS: METOPROLOL SUCC 24HR ER 50 MG TAB.ER.24H. PO SCH ×2 (09:17→21:07)
[2016-11-20] MEDS: ALLOPURINOL 300 MG TABLET. PO SCH (09:17)
[2016-11-20] MEDS: PANTOPRAZOLE 40 MG TABLET. PO SCH (09:18)
[2016-11-20] MEDS: GABAPENTIN 300 MG CAPSULE. PO SCH (09:20)
[2016-11-20 10:06] VITALS: BP 135/75
--- NOTE | 2016-11-20 13:04 | PDOC ---
PROGRESS NOTES Chief Complaint Chief Complaint ESRD new to hemodialysis History of Present Illness History of Present Illness Patient examined while seated comfortably in chair this morning. No new complaints. States he is medically ready for discharge but awaiting coverage approval from insurance for outpatient hemodialysis. Due to holiday, this should be sorted out tomorrow. Vitals Vitals Vital Signs Date Time Temp Pulse Resp B/P Pulse Ox O2 Delivery O2 Flow Rate FiO2 11/20/16 10:35 Nasal Cannula 3.0 11/20/16 10:06 98.2 76 18 135/75 95 98.2 Physical Exam General: Alert, Oriented X3, Cooperative, No acute distress Heart: Regular rate, Normal S1, Normal S2 Lungs: Clear Abdomen: Normal bowel sounds, Soft, No tenderness Extremities: No clubbing, No cyanosis, No edema, No tenderness/swelling Skin: No rashes, No breakdown, No significant lesion Labs LABS Laboratory Tests Test 11/19/16 17:21 11/19/16 21:03 11/20/16 07:55 11/20/16 11:20 Glucose (Fingerstick) 171mg/dL (70-99) 173mg/dL (70-99) 98mg/dL (70-99) 200mg/dL (70-99) Review of Systems Review of Systems Denies chest pain or shortness of breath Tolerating dialysis well Assessment and Plan Assessmemt and Plan Assessment: 1. CAD, s/p cath R wrist 2. ESRD - NEW HD 2. DM 2 with hyperglycemia 3. HTN, 4. Respiratory failure, improving, now on 3 L Oxygen Plan: - Medically stable and ready for discharge, likely tomorrow once insurance sorts out outpatient dialysis - Dialysis per nephrology - Recheck labs - PT/OT prn - Appreciate subspecialty input Problems: Comment Review of Relevant I have reviewed the following items kaylie (where applicable) has been applied. Labs Laboratory Tests Test 11/18/16 16:00 11/18/16 16:37 11/18/16 20:30 11/19/16 07:56 Glucose (Fingerstick) 60mg/dL (70-99) 86mg/dL (70-99) 261mg/dL (70-99) 129mg/dL (70-99) Test 11/19/16 10:30 11/19/16 17:21 11/19/16 21:03 11/20/16 07:55 Glucose (Fingerstick) 170mg/dL (70-99) 171mg/dL (70-99) 173mg/dL (70-99) 98mg/dL (70-99) Test 11/20/16 11:20 Glucose (Fingerstick) 200mg/dL (70-99) Laboratory Tests Test 11/19/16 17:21 11/19/16 21:03 11/20/16 07:55 11/20/16 11:20 Glucose (Fingerstick) 171mg/dL (70-99) 173mg/dL (70-99) 98mg/dL (70-99) 200mg/dL (70-99) Medications Current Medications Morphine Sulfate 2 mg PRN Q2HR PRN IV SEVERE PAIN Last administered on at 22:20; Start 11/15/16 at 05:45 Acetaminophen/ Hydrocodone Bitart (Lortab 5/325) 1 tab PRN Q6HRS PRN PO MODERATE PAIN Last administered on 11/18/16at 01:52; Start 11/15/16 at 05:45 Acetaminophen (Tylenol) 650 mg PRN Q6HRS PRN PO MILD PAIN / TEMP; Start at 06:00 Ondansetron HCl 4 mg 4 mg PRN Q6HRS PRN IV NAUSEA/VOMITING; Start 11/15/16 at 06:00 Sodium Chloride 1,000 ml @ 100 mls/hr Q10H IV Last administered on 11/15/16at 10:11; Start 11/15/16 at 06:00; Stop 11/15/16 at 22:02; Status DC Heparin Sodium/ Dextrose 500 ml @ 0 mls/hr CONT PRN IV SEE I/O RECORD Last administered on 11/15/16at 10:15; Start 11/15/16 at 09:45; Stop 11/15/16 at 15 :32; Status DC Heparin Sodium (Porcine) 2,850 unit PRN Q6HRS PRN IV FOR UFH LEVEL LESS THAN 0.2; Start 11/15/16 at 09:45; Stop 11/15/16 at 15:32; Status DC Aspirin (Ecotrin) 325 mg 1X ONCE PO Last administered on 11/15/16at 10:11; Start 11/15/16 at 09:45; Stop 11/15/16 at 09:46; Status DC Aspirin (Ecotrin) 81 mg DAILYWBKFT PO ; Start 11/16/16 at 08:00; Stop at 08:00; Status DC Sulfur Hexafluoride Microspheres (Lumason) 25 mg STK-MED ONCE IVP ; Start 11/15 at 09:57; Stop 11/15/16 at 09:58; Status DC Allopurinol (Zyloprim) 150 mg DAILY PO ; Start 11/16/16 at 09:00; Stop at 14:27; Status DC Alprazolam (Xanax) 0.5 mg Q8HRS PRN PO ANXIETY / AGITATION Last administered on 11/19/16 21:07; Start 11/15/16 at 10:15 Amlodipine Besylate (Norvasc) 10 mg DAILY PO ; Start 11/16/16 at 09:00; Stop 11/16/16 at 09:00; Status DC Aspirin (Ecotrin) 81 mg DAILYWBKFT PO ; Start 11/16/16 at 08:00; Status UNV Atorvastatin Calcium (Lipitor) 40 mg HS PO Last administered on 11/19/16 21:05 ; Start 11/15/16 at 21:00 Cyclobenzaprine HCl (Flexeril) 10 mg DAILY PO Last administered on 11/20/16 09: 16; Start 11/16/16 at 09:00 Gabapentin (Neurontin) 300 mg DAILY PO Last administered on 11/20/16 09:20; Start 11/16/16 at 09:00 Gemfibrozil (Lopid) 300 mg BID PO Last administered on 11/20/16 09:17; Start 11/15/16 at 21:00 Insulin Aspart (Novolog) 1 units TIDAC SQ ; Start 11/15/16 at 11:30; Stop at 11:30; Status DC Metoprolol Succinate (Toprol Xl) 100 mg DAILY PO ; Start 11/16/16 at 09:00; Stop 11/16/16 at 09:00; Status DC Oxycodone/ Acetaminophen (Percocet 10/325) 1 tab TID PO Last administered on 09:16; Start 11/15/16 at 14:00 Pantoprazole Sodium (Protonix) 40 mg DAILYAC PO Last administered on 11/20/16 09:18; Start 11/16/16 at 09:00 Sennosides (Senna) 8.6 mg DAILY PRN PO CONSTIPATION; Start 11/15/16 at 10:15 Insulin Detemir (Levemir) 50 units QHS SQ Last administered on 11/19/16 21:14; Start 11/15/16 at 21:00 Non-Formulary Medication 0.2 mg DAILY SQ ; Start 11/16/16 at 09:00; Status UNV Non-Formulary Medication 5 mg HS PO ; Start 11/15/16 at 21:00; Status UNV Multivitamins/ Calcium (Thera M Plus) 1 tab DAILY PO Last administered on 09:16; Start 11/16/16 at 09:00 Fish Oil (Fish Oil) 4,000 mg DAILY PO Last administered on 11/20/16 09:16; Start 11/16/16 at 09:00 Insulin Aspart (Novolog) 0-9 UNITS TIDWMEALS SQ Last administered on 11/20/16 12:25; Start 11/15/16 at 12:00 Dextrose 12.5 gm PRN Q15MIN PRN IV SEE COMMENTS; Start 11/15/16 at 10:15 Sulfur Hexafluoride Microspheres (Lumason) 25 mg 1X ONCE IVP Last administered on 11/15/16at 10:16; Start 11/15/16 at 10:15; Stop 11/15/16 at 10 :25; Status DC Nitroglycerin 200 mcg 200 mcg STK-MED ONCE .ROUTE ; Start 11/15/16 at 10:27; Stop 11/15/16 at 10:28; Status DC Heparin Sodium/ Sodium Chloride 1,000 ml @ As Directed STK-MED ONCE .ROUTE ; Start 11/15/16 at 10:27; Stop 11/15/16 at 10:28; Status DC Verapamil HCl (Verapamil) 5 mg STK-MED ONCE .ROUTE ; Start 11/15/16 at 10:27; Stop 11/15/16 at 10:28; Status DC Heparin Sodium (Porcine) 10,000 unit STK-MED ONCE .ROUTE ; Start 11/15/16 at 10 :27; Stop 11/15/16 at 10:28; Status DC Lidocaine HCl 20 ml STK-MED ONCE .ROUTE ; Start 11/15/16 at 10:27; Stop at 10:28; Status DC Insulin Aspart (Novolog) 15 units TIDAC SQ Last administered on 11/19/16 08:56 ; Start 11/15/16 at 11:30; Stop 11/19/16 at 09:59; Status DC Insulin Human Regular (Novolin R Vial) 10 unit 1X ONCE IV Last administered on 11/15/16at 10:52; Start 11/15/16 at 10:30; Stop 11/15/16 at 10:31; Status DC Fentanyl Citrate (Fentanyl 2ml Vial) 100 mcg STK-MED ONCE .ROUTE ; Start at 10:28; Stop 11/15/16 at 10:29; Status DC Midazolam HCl (Versed) 2 mg STK-MED ONCE .ROUTE ; Start 11/15/16 at 10:28; Stop 11/15/16 at 10:29; Status DC Lidocaine HCl 20 ml STK-MED ONCE .ROUTE ; Start 11/15/16 at 10:29; Stop at 10:30; Status DC Iodixanol (Visipaque 320) 100 ml STK-MED ONCE .ROUTE ; Start 11/15/16 at 10:29 ; Stop 11/15/16 at 10:30; Status DC Aspirin (Ecotrin) 81 mg DAILYWBKFT PO Last administered on 11/20/16 09:17; Start 11/16/16 at 08:00 Nitroglycerin (Nitroglycerin) 200 mcg 1X ONCE IART Last administered on at 12:26; Start 11/15/16 at 11:30; Stop 11/15/16 at 11:31; Status DC Verapamil HCl (Verapamil) 2.5 mg 1X ONCE IART Last administered on 11/15/16at 12:25; Start 11/15/16 at 11:30; Stop 11/15/16 at 11:31; Status DC Heparin Sodium (Porcine) 2,500 unit 1X ONCE IART Last administered on at 12:28; Start 11/15/16 at 11:30; Stop 11/15/16 at 11:31; Status DC Heparin Sodium/ Sodium Chloride 2,000 unit 1X ONCE IART Last administered on 11/15/16at 12:20; Start 11/15/16 at 11:30; Stop 11/15/16 at 11:31; Status DC Midazolam HCl (Versed) 2 mg 1X ONCE IV Last administered on 11/15/16at 12:22; Start 11/15/16 at 11:30; Stop 11/15/16 at 11:31; Status DC Fentanyl Citrate (Fentanyl 2ml Vial) 100 mcg 1X ONCE IV Last administered on 11/15/16at 12:22; Start 11/15/16 at 11:30; Stop 11/15/16 at 11:31; Status DC Iodixanol (Visipaque 320) 100 ml 1X ONCE IART Last administered on 11/15/16at 12:20; Start 11/15/16 at 11:30; Stop 11/15/16 at 11:31; Status DC Lidocaine HCl 1 ml 1X ONCE IJ Last administered on 11/15/16at 12:19; Start at 11:30; Stop 11/15/16 at 11:31; Status DC Adenosine (Adenoscan) 90 mg STK-MED ONCE IV ; Start 11/15/16 at 11:59; Stop at 12:00; Status DC Heparin Sodium (Porcine) 4000 unit 4,000 unit 1X ONCE IV Last administered on 11/15/16at 12:30; Start 11/15/16 at 11:39; Stop 11/15/16 at 12:13; Status DC Adenosine/Sodium Chloride (Adenoscan/Iv Sodium Chloride 0.9% 50ml) 120 ml @ 0 mls/hr 1X ONCE IV Last administered on 11/15/16at 12:21; Start 11/15/16 at 12 :04; Stop 11/15/16 at 12:13; Status DC Lidocaine/Sodium Bicarbonate (Buffered Lidocaine 1%) 20 ml STK-MED ONCE IJ ; Start 11/15/16 at 12:43; Stop 11/15/16 at 12:44; Status DC Heparin Sodium/ Sodium Chloride 1,000 unit 1X ONCE IART Last administered on 11/15/16at 13:21; Start 11/15/16 at 13:15; Stop 11/15/16 at 13:16; Status DC Lidocaine/Sodium Bicarbonate (Buffered Lidocaine 1%) 20 ml 1X ONCE IJ Last administered on 11/15/16at 13:20; Start 11/15/16 at 13:15; Stop 11/15/16 at 13 :16; Status DC Heparin Sodium (Porcine) 2600 unit 2,600 unit 1X ONCE INT CAT Last administered on 11/15/16at 13:21; Start 11/15/16 at 13:15; Stop 11/15/16 at 13 :16; Status DC Sodium Chloride (Iv Sodium Chloride 0.9% 1000ml Bag) 1,000 ml @ 1,000 mls/hr Q1H PRN IV hypotension; Start 11/15/16 at 15:55; Stop 11/15/16 at 21:54; Status DC Diphenhydramine HCl (Benadryl) 25 mg 1X PRN PRN IV ITCHING; Start 11/15/16 at 16:00; Stop 11/16/16 at 15:59; Status DC Diphenhydramine HCl (Benadryl) 25 mg 1X PRN PRN IV ITCHING; Start 11/15/16 at 16:00; Stop 11/16/16 at 15:59; Status DC Sodium Chloride (Normal Saline Flush) 10 ml 1X PRN PRN IV AP catheter pack; Start 11/15/16 at 16:00; Stop 11/16/16 at 15:59; Status DC Sodium Chloride (Normal Saline Flush) 10 ml 1X PRN PRN IV VASCULAR TECHNICIAN catheter pack; Start 11/15/16 at 16:00; Stop 11/16/16 at 15:59; Status DC Labetalol HCl (Normodyne) 10 mg PRN Q1HR PRN IVP SBP > 180; Start 11/15/16 at 16:00; Stop 11/16/16 at 15:59; Status DC Info (PHARMACY MONITORING -- do not chart) 1 each PRN DAILY PRN MC SEE COMMENTS ; Start 11/15/16 at 16:00 Info (PHARMACY MONITORING -- do not chart) 1 each PRN DAILY PRN MC SEE COMMENTS ; Start 11/15/16 at 16:00; Status UNV Furosemide (Lasix) 40 mg 1X ONCE IVP Last administered on 11/15/16at 22:52; Start 11/15/16 at 22:45; Stop 11/15/16 at 22:46; Status DC Sodium Chloride (Normal Saline Flush) 10 ml QSHIFT PRN IV AFTER MEDS AND BLOOD DRAWS; Start 11/16/16 at 09:30 Lidocaine HCl (Xylocaine 2% Topical 5gm Tube) 1 martha 1X ONCE TP ; Start at 09:30; Stop 11/16/16 at 09:34; Status DC Lidocaine HCl (Viscous Lidocaine) 15 ml 1X ONCE MM ; Start 11/16/16 at 09:30; Stop 11/16/16 at 09:34; Status DC Benzocaine 3 spray 3 spray 1X ONCE MM ; Start 11/16/16 at 09:30; Stop at 09:34; Status DC Lactated Ringer's (Iv Lactated Ringers) 1,000 ml @ 50 mls/hr Q20H IV ; Start 11/16/16 at 11:56; Stop 11/16/16 at 23:55; Status DC Lidocaine HCl 30 martha 30 martha STK-MED ONCE TP ; Start 11/16/16 at 13:19; Stop at 13:20; Status DC Sodium Chloride 1,000 ml @ 30 mls/hr Q24H IV Last administered on 11/17/16at 13:43; Start 11/16/16 at 13:30; Stop 11/19/16 at 09:59; Status DC Propofol (Diprivan) 40 ml @ As Directed STK-MED ONCE IV ; Start 11/16/16 at 13: 34; Stop 11/16/16 at 13:35; Status DC Lidocaine HCl 100 mg STK-MED ONCE .ROUTE ; Start 11/16/16 at 13:34; Stop 11/16 at 13:35; Status DC Allopurinol (Zyloprim) 150 mg Q48H PO Last administered on 11/20/16 09:17; Start 11/18/16 at 09:00 Metoprolol Succinate (Toprol Xl) 50 mg BID PO Last administered on 11/20/16 09: 17; Start 11/17/16 at 13:00 Heparin Sodium (Porcine) 10,000 unit STK-MED ONCE .ROUTE ; Start 11/17/16 at 14 :37; Stop 11/17/16 at 14:38; Status DC Lidocaine/ Epinephrine 20 ml 20 ml STK-MED ONCE .ROUTE ; Start 11/17/16 at 14: 38; Stop 11/17/16 at 14:39; Status DC Heparin Sodium/ Sodium Chloride 500 ml @ As Directed STK-MED ONCE .ROUTE ; Start 11/17/16 at 14:38; Stop 11/17/16 at 14:39; Status DC Fentanyl Citrate (Fentanyl 2ml Vial) 100 mcg STK-MED ONCE .ROUTE ; Start at 16:02; Stop 11/17/16 at 16:03; Status DC Midazolam HCl 2 mg 2 mg STK-MED ONCE .ROUTE ; Start 11/17/16 at 16:02; Stop at 16:03; Status DC Cefazolin Sodium (Ancef 1gm Ivpb For Omni) 50 ml @ As Directed STK-MED ONCE IV ; Start 11/17/16 at 16:02; Stop 11/17/16 at 16:03; Status DC Heparin Sodium/ Sodium Chloride 1,000 unit 1X ONCE IART Last administered on 11/17/16at 16:45; Start 11/17/16 at 16:30; Stop 11/17/16 at 16:31; Status DC Midazolam HCl (Versed) 2 mg 1X ONCE IV Last administered on 11/17/16at 16:43; Start 11/17/16 at 16:30; Stop 11/17/16 at 16:31; Status DC Fentanyl Citrate 100 mcg 100 mcg 1X ONCE IV Last administered on 11/17/16at 16 :44; Start 11/17/16 at 16:30; Stop 11/17/16 at 16:31; Status DC Cefazolin Sodium (Ancef 1gm Ivpb For Omni) 50 ml @ 100 mls/hr 1X ONCE IV Last administered on 11/17/16at 16:44; Start 11/17/16 at 16:30; Stop 11/17/16 at 16:59; Status DC Lidocaine/ Epinephrine (Xylocaine 1%-Epi 1:100,000) 12 ml 1X ONCE IJ Last administered on 11/17/16at 16:42; Start 11/17/16 at 16:30; Stop 11/17/16 at 16 :31; Status DC Heparin Sodium (Porcine) 4,000 unit 1X ONCE INT CAT Last administered on 11/17at 16:45; Start 11/17/16 at 16:30; Stop 11/17/16 at 16:31; Status DC Fentanyl Citrate (Fentanyl 2ml Vial) 100 mcg STK-MED ONCE .ROUTE ; Start at 16:24; Stop 11/17/16 at 16:25; Status DC Midazolam HCl (Versed) 2 mg STK-MED ONCE .ROUTE ; Start 11/17/16 at 16:24; Stop 11/17/16 at 16:25; Status DC Alprazolam (Xanax) 0.5 mg 1X ONCE PO Last administered on 11/17/16at 18:08; Start 11/17/16 at 18:15; Stop 11/17/16 at 18:16; Status DC Albuterol/ Ipratropium (Duoneb) 3 ml 1X ONCE NEB ; Start 11/17/16 at 21:00; Stop 11/17/16 at 21:00; Status DC Albuterol/ Ipratropium (Duoneb) 3 ml PRN 1X PRN NEB PER PROVIDER INSTRUCTION; Start 11/17/16 at 21:00; Status Cancel Info (PHARMACY MONITORING -- do not chart) 1 each PRN DAILY PRN MC SEE COMMENTS ; Start 11/18/16 at 12:45; Status UNV Info (PHARMACY MONITORING -- do not chart) 1 each PRN DAILY PRN MC SEE COMMENTS ; Start 11/18/16 at 12:45; Status UNV Insulin Aspart (Novolog) 10 units TIDAC SQ Last administered on 11/20/16t 12:22 ; Start 11/19/16 at 11:30 Active Scripts Active Metoprolol Succinate ( Xl ) (Metoprolol Succinate) 100 Mg Tab.er.24h 50 Mg PO DAILY Reported Metformin Hcl 1,000 Mg Tablet 1 Tab PO TID Melatonin 5 Mg Tablet 5 Mg PO HS Percocet 10-325 Mg Tablet (Oxycodone/Acetaminophen) 1 Each Tablet 1 Tab PO TID Lantus Solostar (Insulin Glargine,Hum.rec.anlog) 100 Unit/1 Ml Insuln.pen 50 Unit SQ QHS Xanax (Alprazolam) 0.5 Mg Tablet 0.5 Mg PO Q8HRS PRN Victoza 2-Can (Liraglutide) 0.6 Mg/0.1 Ml Pen.injctr 0.2 Mg SQ DAILY Senna Lax (Sennosides) 8.6 Mg Tablet 8.6 Mg PO DAILY PRN Pantoprazole Sodium 40 Mg Tablet.dr 40 Mg PO DAILY Novolog Flexpen (Insulin Aspart) 100 Unit/1 Ml Insuln.pen 1 Unit SQ TIDAC follow ordered sliding scale Multivitamins (Multivitamin) 1 Each Tablet 1 Each PO DAILY Gemfibrozil 600 Mg Tablet 300 Mg PO BID Gabapentin 300 Mg Capsule 300 Mg PO DAILY Fish Oil 1,200 Mg Softgel ([place]-3 Fatty Acids/Fish Oil) 1 Each Capsule 4 Each PO DAILY Cyclobenzaprine Hcl 10 Mg Tablet 10 Mg PO DAILY Atorvastatin Calcium 40 Mg Tablet 40 Mg PO HS Aspir 81 (Aspirin) 81 Mg Tablet.dr 81 Mg PO DAILY Allopurinol 300 Mg Tablet 150 Mg PO DAILY Vitals/I & O Vital Sign - Last 24 Hours 11/19/16 11/19/16 11/19/16 11/19/16 14:19 14:30 19:25 19:30 Temp 97.8 97.2 97.8 97.2 Pulse 75 81 Resp 18 18 B/P 152/80 125/78 Pulse Ox 98 96 O2 Delivery Nasal Cannula Nasal Cannula Nasal Cannula Nasal Cannula O2 Flow Rate 4.0 3.0 3.0 11/19/16 11/19/16 11/19/16 11/19/16 21:05 21:05 22:05 23:48 Temp 98.9 98.9 Pulse 81 78 Resp 20 20 16 B/P 125/78 114/69 Pulse Ox 96 96 90 O2 Delivery Nasal Cannula Nasal Cannula O2 Flow Rate 3.0 3.0 11/20/16 11/20/16 11/20/16 11/20/16 03:55 07:39 09:16 09:17 Temp 97.9 98.1 97.9 98.1 Pulse 76 80 80 Resp 18 18 B/P 139/79 109/72 109/72 Pulse Ox 96 95 O2 Delivery Nasal Cannula Nasal Cannula Nasal Cannula O2 Flow Rate 3.0 2.0 3.0 11/20/16 11/20/16 10:06 10:35 Temp 98.2 98.2 Pulse 76 Resp 18 B/P 135/75 Pulse Ox 95 O2 Delivery Nasal Cannula Nasal Cannula O2 Flow Rate 3.0 3.0 Intake and Output 11/19/16 11/19/16 11/20/16 15:00 23:00 07:00 Intake Total 180 ml 1000 ml Output Total 800 ml 1200 ml Balance -620 ml 1000 ml -1200 ml CASTLE,NIAL K III DO Nov 20, 2016 13:04
[2016-11-20 14:19] VITALS: BP 120/70
[2016-11-20] MEDS: HYDROCODONE/APAP 5/325MG TABLET. PO PRN (16:36)
[2016-11-20 19:13] VITALS: BP 141/77
[2016-11-20] MEDS: ALPRAZOLAM 0.5 MG TABLET PO PRN (21:07)
[2016-11-20] MEDS: SENNOSIDES 8.6 MG TABLET PO PRN (21:07)
[2016-11-20] MEDS: ATORVASTATIN CALCIUM 40 MG TABLET. PO SCH (21:07)
[2016-11-20] MEDS: INSULIN DETEMIR 300 UNITS/3 ML INSULN.PEN. SQ SCH (21:13)
[2016-11-20 23:21] VITALS: BP 112/75
[2016-11-21 03:25] VITALS: BP 100/67
[2016-11-21 03:43] LABS: BASO % 0 % (0-3); EOS % 3 % (0-3); HEMOGLOBIN 8.2 g/dL (13.0-17.5); LYMPH # 1.9 x10^3/uL (1.0-4.8); LYMPH % 23 % (24-48); MEAN CORPUSCULAR HEMOGLOBIN 31 pg (25-35); MEAN CORPUSCULAR HGB CONC 34 g/dL (31-37); MEAN CORPUSCULAR VOLUME 90 fL (79-100); MONO % 9 % (0-9); NEUT % 64 % (31-73); PLATELET COUNT 302 x10^3/uL (140-400); RED BLOOD COUNT 2.68 x10^6/uL (4.30-5.70); RED CELL DISTRIBUTION WIDTH 13.6 % (11.5-14.5); WHITE BLOOD COUNT 8.2 x10^3/uL (4.0-11.0)
[2016-11-21 04:06] LABS: CREATININE 4.2 mg/dL (0.7-1.3); POTASSIUM 4.1 mmol/L (3.5-5.1)
[2016-11-21 07:00] VITALS: BP 138/55
[2016-11-21] MEDS: INSULIN ASPART 300 UNITS/3 ML INSULN.PEN SQ SCH ×2 (07:30→08:00)
[2016-11-21] MEDS: ASPIRIN ENTERIC COATED 81 MG TABLET.DR. PO SCH (12:58)
[2016-11-21] MEDS: GABAPENTIN 300 MG CAPSULE. PO SCH (12:58)
[2016-11-21] MEDS: OMEGA-3 FATTY ACIDS/FISH OIL 1,000 MG CAPSULE. PO SCH (12:58)
[2016-11-21] MEDS: MULTIVITAMIN with MINERAL TABLET. PO SCH (12:58)
[2016-11-21] MEDS: PANTOPRAZOLE 40 MG TABLET. PO SCH (12:59)
[2016-11-21] MEDS: SENNOSIDES 8.6 MG TABLET PO PRN (12:59)
[2016-11-21] MEDS: CYCLOBENZAPRINE 10 MG TABLET. PO SCH (12:59)
[2016-11-21 13:00] VITALS: BP 138/55
[2016-11-21] MEDS: GEMFIBROZIL 600 MG TABLET. PO SCH (13:00)
[2016-11-21] MEDS: METOPROLOL SUCC 24HR ER 50 MG TAB.ER.24H. PO SCH (13:00)
[2016-11-21] MEDS: OXYCODONE/APAP 10/325 TABLET. PO SCH ×2 (13:01→13:06)
--- NOTE | 2016-11-21 14:13 | DISCH ---
DISCHARGE INSTRUCTIONS Condition on Discharge Condition on Discharge: Stable Activity After Discharge Activity Instructions for Disc: No restrictions Diet after Discharge Diet after Discharge: Renal Dialysis Contacting the DR. after DC Call your doctor for: If your condition worsens MARNI ABEBE MD Nov 21, 2016 14:13
--- NOTE | 2016-11-21 16:30 | PDOC ---
Renal-Progress Notes Subjective Notes Notes NONE, PT WAS SEEN EARLY THIS AM History of Present Illness Hx of present illness BETTER Vitals Vitals Vital Signs Date Time Temp Pulse Resp B/P Pulse Ox O2 Delivery O2 Flow Rate FiO2 11/21/16 13:01 22 94 Room Air 2.0 11/21/16 13:00 73 138/55 11/21/16 07:00 98.3 98.3 Weight Weight [ ] I.O. Intake and Output Intake and Output 11/21/16 07:00 Intake Total 2400 ml Output Total 600 ml Balance 1800 ml Intake Oral 2400 ml Output Urine Total 600 ml # Voids 1 Labs Labs Laboratory Tests Test 11/20/16 16:50 11/20/16 21:05 11/21/16 02:57 11/21/16 07:10 Glucose (Fingerstick) 136mg/dL (70-99) 190mg/dL (70-99) 101mg/dL (70-99) White Blood Count 8.2x10^3/uL (4.0-11.0) Red Blood Count 2.68x10^6/uL (4.30-5.70) Hemoglobin 8.2g/dL (13.0-17.5) Hematocrit 24.0% (39.0-53.0) Mean Corpuscular Volume 90fL (79-100) Mean Corpuscular Hemoglobin 31pg (25-35) Mean Corpuscular Hemoglobin Concent 34g/dL (31-37) Red Cell Distribution Width 13.6% (11.5-14.5) Platelet Count 302x10^3/uL (140-400) Neutrophils (%) (Auto) 64% (31-73) Lymphocytes (%) (Auto) 23% (24-48) Monocytes (%) (Auto) 9% (0-9) Eosinophils (%) (Auto) 3% (0-3) Basophils (%) (Auto) 0% (0-3) Neutrophils # (Auto) 5.3x10^3uL (1.8-7.7) Lymphocytes # (Auto) 1.9x10^3/uL (1.0-4.8) Monocytes # (Auto) 0.8x10^3/uL (0.0-1.1) Eosinophils # (Auto) 0.3x10^3/uL (0.0-0.7) Basophils # (Auto) 0.0x10^3/uL (0.0-0.2) Sodium Level 137mmol/L (136-145) Potassium Level 4.1mmol/L (3.5-5.1) Chloride Level 99mmol/L (98-107) Carbon Dioxide Level 28mmol/L (21-32) Anion Gap 10 (6-14) Blood Urea Nitrogen 59mg/dL (8-26) Creatinine 4.2mg/dL (0.7-1.3) Estimated GFR (Cockcroft-Gault) 15.0 Glucose Level 138mg/dL (70-99) Calcium Level 9.0mg/dL (8.5-10.1) Test 11/21/16 12:25 Glucose (Fingerstick) 114mg/dL (70-99) Review of Systems Constitutional: yes: alert, oriented Ears/Nose/Throat: Yes: no symptom reported Eyes: Yes: no symptom reported Pulmonary: Yes no symptom reported Cardiovascular: Yes no symptom reported Gastrointestional: Yes: no symptom reported Genitourinary: Yes: other (ANURIA) Musculoskeletal: Yes: muscle stiffness Physical Exam General Appearance: no apparent distress Skin: warm Respiratory: bilateral CTA Heart: S1S2, RRR Abdomen: bowel sounds present Genitourinary: bladder flat Neurology: alert, oriented, follow commands Musculoskeletal: Other (chronic pain) Assessment Assessment IMP ESRD ANEMIA PLAN HD TODAY UF TO [facility] D/C PROB TODAY FELISHA ROJAS MD Nov 21, 2016 16:30
--- NOTE | 2016-11-21 23:16 | DS ---
DATE OF DISCHARGE: 11/21/2016 CHIEF COMPLAINT: Chest pain. HOSPITAL COURSE: The patient is a 51-year-old gentleman with longstanding diagnosis of hypertension and diabetes, who presented to Emergency Room at [facility] with chest pain. He was found with a creatinine of over 5 and therefore, referred for cardiac and Nephrology consults to [facility]. Here, he did undergo cardiac cath revealing 2-vessel CAD with patent RCA stent. Recommendations were for aggressive medical therapy. He was also noted to have moderate aortic stenosis. He stabilized from a cardiac standpoint with adjustment in his medications. Transesophageal echo revealed normal EF with normal LV segmental wall motion. The trileaflet aortic valve was noted to have a right and left coronary cusp effusion without any obvious obstruction noted. For his renal failure, Nephrology was consulted. He was deemed to be requiring dialysis and a catheter was placed and he was started on hemodialysis in hospital. Outpatient followup was arranged for him, which required an additional day due to holiday scheduling. PHYSICAL EXAMINATION: VITAL SIGNS: Showed a blood pressure of 138/55, heart rate of 73, respiratory rate at 20. No fevers noted. GENERAL: This is a 51-year-old gentleman, obese, alert and oriented, in no acute distress. LUNGS: Clear. HEART: Regular rate and rhythm. ABDOMEN: Obese, positive bowel sounds. EXTREMITIES: Show no edema. DISCHARGE DISPOSITION: To home. DISCHARGE CONDITION: Improved. DISCHARGE DIAGNOSES: Coronary artery disease status post cardiac cath on November 15, end-stage renal disease status post Bautista placement and start of dialysis. DISCHARGE MEDICATIONS: Please refer to MAR. DISCHARGE INSTRUCTIONS: The patient will follow up with PCP as well as dialysis and see Dr. Urbina as previously arranged. MARNI ABEBE MD DR: DOYLE/nts JOB#: [id number] / [id number] PAOLA
== END 2016-11-21 16:12 | disposition home or self-care (01) | DRG 682 ==
LOC: 2 SOUTH 05:26
PROVIDERS: ADMIT Internal Medicine; ATTEND Internal Medicine
PROC: 02H633Z Insertion of Infusion Device into Right Atrium, Percutaneous Approach (ICD-10-PCS; 2016-11-15)
PROC: B5131ZA Fluoroscopy of Right Jugular Veins using Low Osmolar Contrast, Guidance (ICD-10-PCS; 2016-11-15)
PROC: 5A1D60Z (ICD-10-PCS; principal; 2016-11-18)
DX: N17.9 Acute kidney failure, unspecified (principal); J96.01 Acute respiratory failure with hypoxia; I12.0 Hypertensive chronic kidney disease with stage 5 chronic kidney disease or end stage renal disease; E66.2 Morbid (severe) obesity with alveolar hypoventilation; I50.30 Unspecified diastolic (congestive) heart failure; I25.110 Atherosclerotic heart disease of native coronary artery with unstable angina pectoris; N18.6 End stage renal disease; N25.81 Secondary hyperparathyroidism of renal origin; E11.22 Type 2 diabetes mellitus with diabetic chronic kidney disease; M19.90 Unspecified osteoarthritis, unspecified site; D63.8 Anemia in other chronic diseases classified elsewhere; K21.9 Gastro-esophageal reflux disease without esophagitis; E11.649 Type 2 diabetes mellitus with hypoglycemia without coma; E78.5 Hyperlipidemia, unspecified; I35.0 Nonrheumatic aortic (valve) stenosis; M10.9 Gout, unspecified; Z82.49 Family history of ischemic heart disease and other diseases of the circulatory system; Z86.73 Personal history of transient ischemic attack (TIA), and cerebral infarction without residual deficits; Z99.2 Dependence on renal dialysis; Z91.19 Patient's noncompliance with other medical treatment and regimen; Z95.5 Presence of coronary angioplasty implant and graft; Z68.36 Body mass index [BMI] 36.0-36.9, adult
CPT/HCPCS: 93458; 93571; C8929; 36415; 36556; 36558; 71010; 76376; 76937; 77001; 78582; 80048; 80061; 80069; 81001; 82947; 83036; 83735; 84443; 84484; 85027; 85610; 86704; 86706; 87340; 87341; 93005; 93312; 94620; A9540; A9558; C1750; C1769; C1887; C1892; J0153; J0690; J1815; J1940; J2250; J2270; J2704; J3010; J3490; J7030; Q9950